=== PATIENT | female | born 1945 | race Two or more races ===

== ENCOUNTER 2024-07-26 00:32 | Emergency (ER) | payer MEDICARE, MEDICAID, SELFPAY ==
[2024-07-26 00:49] VITALS: BP 183/85; PULSE 88; RESP 18; TEMP 36.7; O2SAT 94; BMI 29.2
--- NOTE | 2024-07-26 01:29 | EDNOTE_ITS ---
<Statement entered by Mary Jane Sarabia MD - 07/26/24 18:32> As co-signing physician, I was present and available for consult prn. I concur with the plan and care as documented by the midlevel provider. ED Arrhythmia Palp. RME/HPI General Chief Complaint: Headache Stated Complaint: feels palpitations, headache Time Seen by Provider: 07/26/24 01:20 Arrival date/time: 07/26/24 00:32 78F with history of HTN presents to ED with buzzing in both ears, and heart palps after patient took some Sleepytime tea. Symptoms improved prior to arrival in ED. Patient took it to try and sleep due to close to anniversary of of . Patient denies dizziness, N/V, CP, SOB, confusion, and vision changes. Limitations: no limitations Related Data Allergies Allergy/AdvReac Type Severity Reaction Status Date / Time No Known Allergies Allergy Verified 07/26/24 00:35 Review of Systems Review of Systems Systems Reviewed: All systems reviewed, normal except as documented Constitutional Constitutional: Reports system reviewed and no additional complaints, except as documented, Denies fever(s) and Denies headache(s) ENT Ears, Nose, Mouth, and Throat: Reports as per HPI, Denies disequilibrium, Denies headache(s) and Reports other (buzzing in ears) Cardiovascular Cardiovascular: Reports system reviewed and no additional complaints, except as documented, Reports as per HPI, Denies chest pain, Denies dyspnea and Reports palpitations Respiratory Respiratory: Reports system reviewed and no additional complaints, except as documented, Denies cough and Denies dyspnea Gastrointestinal Gastrointestinal: Reports system reviewed and no additional complaints, except as documented, Denies abdominal pain, Denies nausea and Denies vomiting Neurologic Neurologic: Reports system reviewed and no additional complaints, except as documented, Denies confusion, Denies disequilibrium and Denies headache(s) Psychiatric Psychiatric: Denies confusion Endocrine Endocrine: Reports palpitations Past Medical History Social History SMOKING STATUS: Former smoker ED Exam General Limitations: Present no limitations General appearance: Present alert and in no apparent distress Head Head exam: Present atraumatic Eye Eye exam: Present normal appearance, PERRL and EOMI ENT ENT exam: Present normal exam, normal oropharynx and mucous membranes moist Neck Neck exam: Present normal inspection, full ROM and trachea midline Chest Chest inspection: Present normal inspection and symmetric chest wall rise Respiratory Respiratory exam: Present normal lung sounds bilaterally Cardiovascular Cardiovascular exam: Present regular rate, normal rhythm and normal heart sounds Abdominal Exam Abdominal exam: Present soft and normal bowel sounds Extremities Exam Extremities exam: Present normal inspection and full ROM Back Exam Back exam: Present normal inspection and full ROM Neurological Exam Neurological exam: Present alert, oriented X3 and CN II-XII intact Psychiatric Psychiatric exam: Present normal affect and normal mood Skin Skin exam: Present warm, dry, intact and normal color Course Quality Measures none Vital Signs Vital signs: Vital Signs Temperature 98.1 F 07/26/24 00:49 Pulse Rate 88 07/26/24 00:49 Respiratory Rate 18 07/26/24 00:49 Blood Pressure 183/85 H 07/26/24 00:49 Pulse Oximetry (%) 94 L 07/26/24 00:49 Oxygen Delivery Method Room Air 07/26/24 00:49 Arrhythmia/Palpitations MDM Narrative MDM Narrative:: 78F with history of HTN presents to ED with buzzing in both ears, and heart palps after patient took some Sleepytime tea. Symptoms improved prior to arrival in ED. Patient took it to try and sleep due to close to anniversary of of . Patient denies dizziness, N/V, CP, SOB, confusion, and vision changes. Physical exam reveals normal pupil response and EOM. CN II-XII grossly intact. Strength equal bilaterally. Gait normal. Speech normal. Normal WOB. ENT normal. Patient is afebrile, calm, and alert. Patient declines observation period as she will take her normal sleeping meds (some Benzo from [place]) rather than wait. Likely drug/med reaction. Waste Management Specialist given. Patient data External records reviewed:: None Clinical information provided by:: patient Social determinants that could affect healthcare access:: none Patient has the following chronic illnesses:: HTN How is presenting disease/condition affected by chronic disease/condition?: uneffected by Evaluation data The following diagnostics were reviewed and interpreted by me:: other (specify) (none) Lab and/or radiology exams considered but not ordered:: not ordered Interpretation Summary: n/a Medications / Prescriptions Medications or Prescriptions considered but not ordered:: not ordered Medication administrations:: n/a Consultations Consultation(s) initiated? (list below): No Diagnosis Differential diagnosis arrhythmia/palpitations: palpitations, anxiety, sinus tachycardia, artial fibrillation, artial flutter, ventricular premature beats, supraventricular tachycardia, ventricular tachycardia, WPW and other (drug adverse reaction) Most likely diagnosis given after review of the tests above:: drug adverse reaction Admission Indicated Admission indicated?: not indicated Admission Request Was there a request for admission?: No Disposition Plan Disposition Plan: Discharge Discharge Attestation Discharge Attestation: The patient and all family members were given an opportunity to ask questions and understood the discharge instructions. Discharge instructions specifically effects, indications for sooner follow up or return to the emergency department, and the expected course of current diagnosis. Patient condition: Stable Discharge Plan Plan Patient Disposition: HOME (Self Care) Discharge Disposition comment: Stable Problem List Clinical Impression: Adverse drug reaction Patient/Caregiver Discharge Instructions Education Materials: ED Drug Reaction, Other Additional Instructions: Please follow-up with PCP within 24-48 hours and return immediately if symptoms worsen. Print Language: Egyptian Stand Alone Forms: Patient Portal Info Letter NICOLAS/SAMIR Supervising Physician RUSLAN Supervising Physician: Dr. Sarabia
== END 2024-07-26 01:48 | disposition home or self-care (01) ==
PROVIDERS: Emergency Provider Emergency Medicine; PCP Physician Assistant
DX: T78.1XXA Other adverse food reactions, not elsewhere classified, initial encounter (principal); R51.9 Headache, unspecified; R00.2 Palpitations
CPT/HCPCS: 99281

== ENCOUNTER 2024-08-31 18:53 | Inpatient (IN) | payer MEDICARE, MEDICAID, SELFPAY ==
[2024-08-31 18:55] VITALS: BMI 27.8
--- NOTE | 2024-08-31 19:07 | PD.EDSOB ---
ED SOB =RME/HPI General Chief Complaint: Shortness of Breath/Dyspnea Stated Complaint: DYSPNEA, RIGHT LUNG OPAQUE IN CXR Time Seen by Provider: 08/31/24 19:34 Arrival date/time: 08/31/24 18:53 RME / HPI RME / HPI Narrative: This section includes all my notes and documentations, including HPI, PE, and ED course. Andrés Melgar MD HPI: 78yo female BIB her daughter with shortness of breath. Patient has been short of breath for the last 3 months, but has gotten progressively worse over the last 3 weeks. She also reports dry cough and orthopnea and PND. No other complaints. ROS: All negative except as documented in HPI. Physical Exam: General: Alert and oriented. In mild respiratory distress. Eyes: Conjunctivae and lids clear. ENT: No nasal congestion. Neck: Supple. Heart: RRR. Lungs: Mild respiratory distress. No air movement in the right field. Abdomen: Soft and nontender. Legs: No edema. Skin: Warm and dry. Neuro: Alert and oriented X 3. I reviewed all diagnostic test results. My interpretation of the EKG is sinus rhythm with nonspecific ST-T changes. My interpretation of the chest x-ray is large right pleural effusion. My review of the CT angio chest report is large right pleural effusion, no PE. My review of the CT abdomen pelvis report is NAD. Blood tests remarkable for Creatinine 1.7, Glucose 204, Troponin 0.052. At this point, diagnoses include right pleural effusion. Treatment here included Nitroglycerin, Morphine, and Lasix. No significant improvement noted. I discussed the case with our hospitalist. About the presentation and exam and diagnostics and treatments here. And need of further care in the hospital. Will accept the patient. Andrés Melgar MD Related Data Home Medications ?Medication ?Instructions ?Recorded ?Confirmed amlodipine 10 mg tablet 5 mg PO QDAY 09/01/24 09/01/24 atorvastatin 20 mg tablet 20 mg PO HS 09/01/24 09/01/24 bisoprolol fumarate 5 mg tablet 2.5 mg PO DAILY 09/01/24 09/01/24 levothyroxine 88 mcg tablet 88 mcg PO DAILY 09/01/24 09/01/24 telmisartan 80 2 tab PO DAILY 09/01/24 09/01/24 mg-hydrochlorothiazide 12.5 mg tablet Allergies Allergy/AdvReac Type Severity Reaction Status Date / Time No Known Allergies Allergy Verified 08/31/24 18:57 Review of Systems Review of Systems Systems Reviewed: All systems reviewed, normal except as documented Past Medical History Social History SMOKING STATUS: Never smoker ED Exam Narrative Physical exam: As noted in HPI. Course Course Course Narrative: CXR is ordered for determining the etiology of shortness of breath. Quality Measures none Orders Category Date Time Status Bedside COVID-19 Antigen Test NOW Care 08/31/24 19:10 Active Bedside Influenza A&B Antigen Test NOW Care 08/31/24 19:[address] Screening NOW Care 08/31/24 19:11 Active EKG (ED ONLY) *Do not use* NOW Care 08/31/24 19:11 Completed Saline [Insert IV] NOW Care 08/31/24 19:10 Active Straight [In and Out Catheter] X1 Care 08/31/24 19:[address] abdomen pelvis w con Stat Exams 08/31/24 19:[address] angio chest Stat Exams 08/31/24 19:11 Completed EKG (ED Only) Stat Exams 08/31/24 19:11 Draft XR chest 1V portable Stat Exams 08/31/24 19:11 Completed ABG [Arterial Blood Gas] Stat Lab 08/31/24 19:48 Completed BNP [B-Type Natriuretic Peptide] Stat Lab 08/31/24 19:48 Completed Bilirubin,Direct Stat Lab 08/31/24 19:48 Completed CBC Stat Lab 08/31/24 19:48 Completed CMP [Comprehensive Metabolic Panel] Stat Lab 08/31/24 19:48 Completed D-Dimer Stat Lab 08/31/24 19:48 Completed Free T4 (Free Thyroxine) Stat Lab 08/31/24 19:48 Completed Magnesium Stat Lab 08/31/24 19:48 Completed PT [Prothrombin Time with INR] Stat Lab 08/31/24 19:48 Completed PTT [Partial Thromboplastin Time] Stat Lab 08/31/24 19:48 Completed TSH [Thyroid Stimulating Hormone] Stat Lab 08/31/24 19:48 Completed Troponin I Stat Lab 08/31/24 19:48 Completed UA, C/S IF [Urinalysis, C/S if Indicated] Stat Lab 08/31/24 20:43 Completed Furosemide Inj [Lasix Inj] Med 08/31/24 19:10 Discontinued 40 mg IVP X1 ONE Morphine Inj Med 08/31/24 19:10 Discontinued 1 mg IVP X1 ONE Nitroglycerin Oint 2% [Nitro-paste Oint 2%] Med 08/31/24 19:10 Discontinued 1 inch TOP X1 ONE Vital Signs Vital signs: Vital Signs Temperature 98.6 F 08/31/24 19:08 Pulse Rate 79 08/31/24 19:08 Respiratory Rate 16 08/31/24 19:08 Blood Pressure 168/80 H 08/31/24 19:08 Pulse Oximetry (%) 92 L 08/31/24 19:08 Oxygen Delivery Method Room Air 08/31/24 19:08 Shortness of Breath / Dyspnea MDM Narrative MDM Narrative:: 78yo female BIB her daughter with shortness of breath. Patient has been short of breath for the last 3 months, but has gotten progressively worse over the last 3 weeks. She also reports dry cough and orthopnea and PND. No other complaints Patient data External records reviewed:: [facility] previous records (Per chart review, patient has no relevant previous ED visits.) Clinical information provided by:: patient and family Social determinants that could affect healthcare access:: none Patient has the following chronic illnesses:: HTN, HLD How is presenting disease/condition affected by chronic disease/condition?: uneffected by Evaluation data The following diagnostics were reviewed and interpreted by me:: lab results, radiology exam(s) and EKG tracing(s) (My interpretation of the EKG is: Sinus rhythm (75 bpm) with nonspecific ST-T changes. Andrés Melgar MD) Lab and/or radiology exams considered but not ordered:: none Interpretation Summary: I reviewed all diagnostic test results. My interpretation of the EKG is sinus rhythm with nonspecific ST-T changes. My interpretation of the chest x-ray is large right pleural effusion. My review of the CT angio chest report is large right pleural effusion, no PE. My review of the CT abdomen pelvis report is NAD. Blood tests remarkable for Creatinine 1.7, Glucose 204, Troponin 0.052. Medications / Prescriptions Medications or Prescriptions considered but not ordered:: none Medication administrations:: Medication Administration History Acetaminophen (Acetaminophen 325 Mg Tablet) 650 mg PO Q6H PRN PRN Reason: PAIN SCALE 1-3 (mild Stop: 09/30/24 22:12 Heparin Sodium (Porcine) (Heparin Sod Inj 5000 Unit/Ml Vial) 5,000 unit SC Q12HR VESTA Stop: 09/15/24 08:59 Levothyroxine Sodium (Levothyroxine Sodium 88 Mcg Tablet) 88 mcg PO ACBR VESTA Stop: 10/01/24 05:59 Ondansetron HCl (Ondansetron Inj 2 Mg/Ml Inj 2 Ml) 4 mg IVP Q6H PRN; Protocol PRN Reason: NAUSEA OR VOMITING Stop: 09/30/24 22:12 Sennosides (Senna Tablet) 1 tab PO QDAY PRN; Protocol PRN Reason: constipation Stop: 09/30/24 22:12 Discontinued Medications Furosemide (Furosemide Inj 10 Mg/Ml 4ml Vial) 40 mg IVP X1 ONE Stop: 08/31/24 19:11 Last Admin: 08/31/24 20:08 Dose: 40 mg Documented By: DT Morphine Sulfate (Morphine Sulf Inj 10 Mg/Ml Vial) 1 mg IVP X1 ONE Stop: 08/31/24 19:11 Last Admin: 08/31/24 20:06 Dose: 1 mg Documented By: DT Nitroglycerin (Nitroglycerin Oint 2% 1 Inch Packet) 1 inch TOP X1 ONE Stop: 08/31/24 19:11 Last Admin: 08/31/24 20:10 Dose: 1 inch Documented By: DT Nitroglycerin, Morphine, Lasix Consultations Consultation(s) initiated? (list below): Yes Consultation #1 (Physician, Specialty, Details): I discussed the case with our hospitalist. About the presentation and exam and diagnostics and treatments here. And need of further care in the hospital. Will accept the patient. Diagnosis Shortness of Breath Differential Diagnosis: acute exacerbation of chronic obstructive airways disease, congestive heart failure, community acquired pneumonia, asthma with exacerbation, pulmonary embolism and other (Pleural effusion) Most likely diagnosis given after review of the tests above:: Right pleural effusion Admission Indicated Admission indicated?: indicated Explain why admission is indicated or not indicated:: Right pleural effusion Admission Request Was there a request for admission?: Yes Admission Attestation Admission request attestation: Discussed case with Hospitalist service regarding admission. Discussed patients ED course, exam findings, labs, and radiology results. The Hospitalist [agrees] to accept the patient for admission. Disposition Plan Disposition Plan: Admit Discharge Plan Plan Patient Disposition: Admit Acute Care w/in Hospital Problem List Clinical Impression: Pleural effusion, right
[2024-08-31 19:08] VITALS: BP 168/80; PULSE 79; RESP 16; TEMP 37; O2SAT 92
--- NOTE | 2024-08-31 19:11 | XR_ITS ---
Examination: PA chest single view TECHNIQUE: Upright PA chest single view Date and time: August 31, 2024, 1925 hours INDICATIONS: Shortness of breath chest pain today. FINDINGS: Large right pleural effusion Normal heart size Left lung clear IMPRESSION: Large right pleural effusion
--- NOTE | 2024-08-31 19:11 | XR_ITS ---
Examination: CTA chest with intravenous contrast 2-D reconstructions 3-D reconstructions, vascular Date and time of exam: August 31, 2024 2114 hours INDICATIONS: Difficulty breathing today CTDI: vol (mGy) 25 DLP: (mGycm) 338 Technique: Multiple axial sections of the thorax have been obtained. 3 mm slice thickness, from below the hemidiaphragms to above the apices of the lungs. Mediastinal and lung density settings have been obtained. 2-D sagittal and coronal reconstructions. 3-D angiographic renderings, 3-D volume renderings, 3D post processing, vascular maximum intensity projections obtained. Contrast administered is 60 cc Isovue 300 Low dose protocols were performed. One or more of the following dose reduction techniques were used; automated exposure control, adjustment of the mA and/or KV according to patient size, use of iterative reconstruction technique. Findings: No thoracic aortic aneurysmal dilatation No pulmonary artery filling defects Large right pleural effusion with significant atelectasis right lung No left lung pneumonia Liver is irregular in contour Spleen is not enlarged No pancreatic mass Kidneys partially visualized no hydronephrosis IMPRESSION: Negative for pulmonary artery emboli Large right pleural effusion with total atelectasis right lung
--- NOTE | 2024-08-31 19:11 | EKG_ITS ---
[facility] Test Date: 2024-08-31 Pat Name: MAXI HOOKER Department: Room: - Gender: Female Sustainable Development Policy Analyst: : 1945 Requested By: Andrés Ibarra Order Number: [id number] Reading MD: Andrés Ibarra Measurements Intervals [place] Rate: 75 P: 13 KS: 153 QRS: 4 QRSD: 85 T: 6 QT: 392 QTc: 440 Interpretive Statements SINUS RHYTHM LOW QRS VOLTAGE IN PRECORDIAL LEADS [QRS DEFLECTION < 1.0 mV IN CHEST LEADS] POSSIBLE ANTERIOR MYOCARDIAL INFARCTION , OF INDETERMINATE AGE [30 ms Q WAVE IN V3/V4, OR R < 0.2 mV IN V4] No previous ECG available for comparison /[id number]/[email or web address]/[id number].pdf
--- NOTE | 2024-08-31 19:11 | XR_ITS ---
Examination: CT abdomen with intravenous contrast CT pelvis with intravenous contrast 2-D coronal reconstructions 2-D sagittal reconstructions Date and time of exam:August 31, 9024, 2113 hours INDICATIONS: Abdominal pain today. CTDI: vol (mGy) 7.46 DLP: (mGycm) 133 Technique: Multiple axial sections of the abdomen and pelvis have been obtained. 64 slice high-resolution scanner used. 3 mm axial sections have been obtained, post intravenous injection 60 cc Isovue 300 2-D sagittal, coronal reconstructions obtained. Low dose protocols were performed. One or more of the following dose reduction techniques were used; automated exposure control, adjustment of the mA and/or KV according to patient size, use of iterative reconstruction technique. Findings: Partial visualization of large right pleural effusion Liver mildly irregular in contour, no focal liver lesions Gallbladder not visualized No biliary tract dilatation No pancreatic mass Spleen is not enlarged. Abdominal aorta normal size 4 cm right parapelvic cyst No hydronephrosis or ureteral calculi No bowel obstruction Normal appendix Atrophic anteverted uterus No pelvic mass Urinary bladder intact Advanced degenerative disc disease L2-L3 Moderate bilateral hip osteoarthritis IMPRESSION: Partial visualization large right pleural effusion Primary hepatocellular disease No hydronephrosis renal or ureteral calculi Normal appendix No bowel obstruction or diverticulitis
[2024-08-31 19:53] LABS: Base Excess 7 (-3-3); HCO3 32 mEq/L (20-26); Inspired Oxygen, FIO2 21 %; O2 Saturation 93 % (91-98); PCO2 46 mmHg (32.0-48.0); PO2 63 mmHg (83-108); pH, Arterial 7.45 (7.35-7.45)
[2024-08-31 19:57] LABS: Allen Test Performed/OK; Puncture Site Right Radial
[2024-08-31 19:58] LABS: Basophils # (Auto) 0.1 Thou/mm3 (0.0-0.2); Basophils % (Auto) 2 % (0-2.5); Eosinophils # (Auto) 0.1 Thou/mm3 (0.0-0.5); Eosinophils % (Auto) 2 % (0-10); Hematocrit 44.0 % (36.0-46.0); Hemoglobin 15.8 g/dL (12.0-16.0); Immature Granulocytes Auto 0.01 Thou/mm3 (0.00-0.00); Lymphocytes # (Auto) 2.0 Thou/mm3 (1.0-4.8); Lymphocytes % (Auto) 33 % (10-50); Mean Corpuscular HGB Conc 35.9 g/dl (31.0-37.0); Mean Corpuscular Hemoglobin 30.4 pg (25.0-35.0); Mean Corpuscular Volume 85 fL (80-100); Monocytes # (Auto) 0.5 Thou/mm3 (0.0-0.8); Monocytes % (Auto) 8 % (0-12); Neutrophils # (Auto) 3.5 Thou/mm3 (1.8-7.7); Neutrophils % (Auto) 57 % (37-80); Nucleated Red Blood Cell # 0.00 Thou/mm3 (0.00-0.00); Nucleated Red Blood Cell % 0 /100 WBC (0); Platelet Count 236 Thou/mm3 (140-440); RDW Standard Deviation 37.3 fL (36.4-46.3); Red Blood Count 5.20 Miln/mm3 (4.00-5.20); White Blood Count 6.1 Thou/mm3 (3.6-11.0)
[2024-08-31] MEDS: MORPHINE SULF INJ 10 MG/ML VIAL IVP (20:06)
[2024-08-31 20:08] VITALS: BP 140/80; PULSE 75
[2024-08-31] MEDS: FUROSEMIDE INJ 10 MG/ML 4ML VIAL 40 MG IVP (20:08)
[2024-08-31 20:10] VITALS: BP 140/80; PULSE 78
[2024-08-31] MEDS: NITROGLYCERIN OINT 2% 1 INCH PACKET TOP (20:10)
[2024-08-31 20:16] LABS: D-Dimer < 250 ng/mL (<600)
[2024-08-31 20:20] VITALS: BP 131/74; PULSE 72; RESP 16; TEMP 37; O2SAT 95
[2024-08-31 20:41] LABS: B-Type Natriuretic Peptide 30 pg/mL (0-100); INR 1.0 (0.9-1.3); Partial Thromboplastin Time 24.8 Seconds (22.0-36.0); Prothrombin Time 11.0 Seconds (9.0-12.2)
[2024-08-31 20:47] LABS: Collection Type, Urine Clean Catch
[2024-08-31 20:47] LABS: Alanine Aminotransferase 9 U/L (10-49); Albumin, Serum 4.7 gm/dL (3.4-4.8); Albumin/Globulin Ratio 2.0 (1.2-2.2); Alkaline Phosphatase 43 U/L (46-116); Anion Gap 9 (7-16); Aspartate Amino Transferase < 10 U/L (0-34); BUN/Creatinine Ratio 8 Ratio (12-20); Bilirubin,Direct 0.2 mg/dL (0.0-0.3); Bilirubin,Total 0.7 mg/dL (0.3-1.2); Blood Urea Nitrogen 14 mg/dL (9-23); Calcium 10.0 mg/dL (8.3-10.6); Calcium (Corrected) 10.0 mg/dL (8.5-10.1); Carbon Dioxide 31.1 mMol/L (20.0-31.0); Chloride 101 mMol/L (98-107); Creatinine (Component) 1.7 mg/dL (0.6-1.3); Estimated Creatinine Clearance 24.6 mL/min (>60); Free T4 (Free Thyroxine) 2.04 ng/dL (0.89-1.76); Globulin 2.4 gm/dL (2.3-3.5); Glucose 204 mg/dL (74-106); Magnesium 2.2 mg/dL (1.6-2.6); Osmolality,Calculated 287 (275-295); Potassium 3.4 mMol/L (3.4-5.1); Sodium 141 mMol/L (136-145); Thyroid Stimulating Hormone 0.20 uIU/mL (0.55-4.78); Total Protein 7.1 gm/dL (5.7-8.2); eGFR 31 See Note
[2024-08-31 20:49] LABS: Troponin I 0.052 ng/mL (0.0-0.045)
[2024-08-31 20:51] LABS: Bilirubin,Urine Negative (Negative); Blood,Urine Negative (Negative); Clarity,Urine Clear (Clear/Hazy); Color,Urine Colorless (Lt Yel-Yel); Culture Indicated,Urine Not Indicated; Glucose, Urine Negative (Negative); Hyaline Casts,Urine < 1 /hpf (0-1); Ketones,Urine Negative (Negative); Leukocyte Esterase,Urine Negative (Negative); Nitrite,Urine Negative (Negative); PH,Urine 6.0 (5.0-7.0); Protein,Urine Negative (Neg - Trace); RBC,Urine < 1 /hpf (0-3); Specific Gravity,Urine 1.010 (1.001-1.035); Squamous Epithelial Cell,Urine < 1 /hpf (0-5); Urobilinogen,Urine Negative mg/dL (0.0-1.0); WBC,Urine < 1 /hpf (0-5)
[2024-08-31 21:14] VITALS: BP 121/77; PULSE 85; RESP 14; TEMP 37; O2SAT 93
--- NOTE | 2024-08-31 22:15 | ECHO_ITS ---
Transthoracic Echo Report Ht (in): 61 Wt (lb): 147 Exam Location: Echo Lab Status: Emergency Customs Broker: Vicky Campbell Indications: Procedure Performed: BP: 155 / 76 HR: 85 Technical Quality: Poor MEASUREMENTS (Male / Female) Normal Values 2D ECHO LV Diastolic Diameter PLAX 3.3 cm 4.2 - 5.9 / 3.9 - 5.3 cm LV Systolic Diameter PLAX 2.2 cm IVS Diastolic Thickness 0.9 cm 0.6 - 1.0 / 0.6 - 0.9 cm LVPW Diastolic Thickness 0.9 cm 0.6 - 1.0 / 0.6 - 0.9 cm LV Relative Wall Thickness 0.5 LVOT Diameter 1.7 cm Aortic Root Diameter 3.0 cm LA Volume Index 17.0 cm?/m? 16 - 28 cm?/m? M-MODE Aortic Root Diameter MM 2.5 cm LA Systolic Diameter MM 2.8 cm LA Ao Ratio MM 1.1 AV Cusp Separation MM 1.6 cm DOPPLER AV Peak Velocity 207.0 cm/s AV Peak Gradient 17.1 mmHg AV Mean Gradient 8.0 mmHg AV Velocity Time Integral 34.0 cm LVOT Peak Velocity 136.0 cm/s LVOT Peak Gradient 7.4 mmHg LVOT Velocity Time Integral 29.6 cm LVOT Cardiac Index 3331.3 cm?/min?m? AV Area Cont Eq vti 2.0 cm? AV Area Cont Eq pk 1.5 cm? MV Area PHT 3.4 cm? Mitral E Point Velocity 51.4 cm/s Mitral A Point Velocity 95.1 cm/s Mitral E to A Ratio 0.5 LV E' Lateral Velocity 10.3 cm/s Mitral E to LV E' Lateral Ratio 5.0 LV E' Septal Velocity 7.7 cm/s Mitral E to LV E' Septal Ratio 6.7 TR Peak Velocity 277.5 cm/s TR Peak Gradient 30.8 mmHg PV Peak Velocity 147.0 cm/s PV Peak Gradient 8.6 mmHg FINDINGS Left Ventricle Normal left ventricular size, wall thickness, systolic function with no obvious regional wall motion abnormalities. The ejection fraction is visually estimated at 55-60 %. There is grade I diastolic dysfunction of the left ventricle (impaired relaxation pattern). Right Ventricle The right ventricle is normal in size and systolic function. The estimated right ventricular systolic pressure, 37 mmHg. RAP 5. Left Atrium The left atrium is normal by two-dimensional, color flow and Doppler imaging with no structural abnormalities, no thrombus formation present. Right Atrium The right atrium is normal by two-dimensional imaging, color flow and Doppler imaging with no structural abnormalities, no thrombus formation present. Atrial Septum The interatrial septum appears normal with no evidence of a shunt. Aorta The aorta is normal by two-dimensional, color flow and Doppler interrogation. Mitral Valve The mitral valve is normal by two-dimensional, color flow and Doppler interrogation. Trace mitral regurgitation. Aortic Valve The aortic valve is trileaflet and normal by two-dimensional, color flow and Doppler interrogation. There is no significant aortic valve regurgitation. Tricuspid Valve The tricuspid valve is normal by two-dimensional, color flow and Doppler interrogation. There is mild tricuspid valve regurgitation. Pulmonic Valve The pulmonic valve is not well visualized. There is no significant pulmonic valve regurgitation. Vessels The pulmonary artery appears normal. The inferior vena cava pulmonary and hepatic veins appear normal. Pericardium The pericardium is normal by two-dimensional imaging. There is no significant pericardial effusion. CONCLUSIONS Indication: Orthopnea, LE edema, Effusion Normal left ventricular size and function. Estimated at 55-60 %. There is grade I diastolic dysfunction. The RV is normal in size and systolic function. The estimated RVSP, 37 mmH Trace mitral and trace tricuspid regurgitation Marina Das (Electronically Signed) Final Date: 02 September 2024 18:34
--- NOTE | 2024-08-31 23:48 | PC.NURSE ---
Telephone report recieved from Mandi from ER.
[2024-09-01] VITALS (14 sets, daily range): BP systolic 107–155; BP diastolic 58–76; PULSE 64–96; RESP 14–26; TEMP 36.1–36.6; O2SAT 90–97; BMI 27.8
--- NOTE | 2024-09-01 | XR_ITS ---
Examination: IR fluoroscopically guided placement chest tube, right Fluoroscopy AP chest Date and time: September 01, 2024 1222 hours INDICATIONS: Pneumothorax post right thoracentesis today TECHNIQUE AND FINDINGS: Informed consent provided. Timeout performed. Skin prepped over the right hemithorax and sterile drape applied hand hygiene 1% lidocaine administered for local anesthesia Utilizing fluoroscopic guidance 9 [place] 25 cm chest tube placed in the right hemithorax Fluoroscopy 0.3 minute radiation dose 2.06 milligray 1 spot fluoroscopic chest film IMPRESSION: Successful IR fluoroscopically guided placement right chest tube Estimated blood loss 2 cc
--- NOTE | 2024-09-01 01:15 | PD.RESHP ---
Documentation for date of: 09/01/24 [facility] History of Present Illness History of present illness: Radha Nance is a 78-year-old female with a PMH of hypertension, prediabetes, hypothyroidism, hyperlipidemia, and osteoarthritis who presents today with worsening shortness of breath. Patient is [place]-speaking and her daughter, who was present at the time of interview, acted as the jewelry drilling machine operator. Patient reports that her shortness of breath began 3 months ago but had acutely worsened in the past 3 weeks. She says that now she is having shortness of breath just from doing simple things like lifting a baby and that she needs to rest more often so that she can catch her breath. She also endorses that she has had to sleep with her head elevated or with her sitting upright so that she can breathe better. She also complains of night sweats, palpitations, and abdominal pain. She denies any recent travel or sick contacts. In the ED, vitals showed: BP 168/80 HR 79 RR 16 Temp 98.6 SpO2 92% on room air ED Course: CBC was unremarkable. ABG showed low PO2 63, low HCO3 32, and high ABG base excess 7. CMP showed slightly high carbon dioxide 31.1, high creatinine 1.7, low EGFR 31, high blood glucose 204, high troponin I 0.052, low TSH 0.20, and high free T4 2.04. UA was unremarkable. Imaging: CTAP showed partial visualization of a large right pleural effusion and primary hepatocellular disease. Chest CTA showed large right pleural effusion with total atelectasis of the right lung but was negative for pulmonary artery emboli. Chest x-ray showed large right pleural effusion. EKG showed sinus rhythm with possible old anterior myocardial infarction of indeterminate age. In the ED, patient was given IV morphine sulfate 1 mg x 1, IV furosemide 40 mg x 1, and 1 inch of nitroglycerin paste x 1. Patient was admitted for the work-up and management of right pleural effusion w/ associated shortness of breath and IRA vs. CKD. Review of Systems Review of Systems Narrative Review of Systems: General: Endorses night sweats. Denies fevers or chills HEENT: Denies congestion or sore throat Heart: Endorses palpitations. Endorses orthopnea. Denies chest pain Lungs: Endorses shortness of breath. Denies cough Abdomen: Endorses abdominal pain. Denies nausea, vomiting, constipation, diarrhea, or blood in stool Genitourinary: Denies frequency, urgency, dysuria, or hematuria Neurology: Denies any changes in vision, weakness or difficulty speaking Review of systems otherwise negative except what is mentioned above. Past Medical History Past Medical History CARDIAC: Positive Cardiac Disorders (htn); Negative Congestive Heart Failure RESPIRATORY: Positive Asthma; Negative Chronic Obstructive Pulmonary Disease (COPD) GENITOURINARY: Negative Renal Disease ENDOCRINE: Negative Diabetes Mellitus Type 1 or Diabetes Mellitus Type 2 HEMATOLOGIC: Negative Sickle Cell Disease Social History SMOKING STATUS: Never smoker Past Medical History Comments PMH COMMENT: PMH: Hypertension, prediabetes, hypothyroidism, hyperlipidemia, osteoarthritis PSH: Hemorrhoidectomy, cholecystectomy Medications: Telmisartan 80 mg daily, bromazepam 3 mg nightly, levothyroxine 88 mcg every morning, amlodipine 5 mg every morning, bisoprolol 2.5 mg daily Allergies: None FH: Dad of [place], mom of stroke SH: Lives in [place] in a house with son, smoked a cigarette a day for 20 years, no drinking history, no recreational drug use Exam Vital Signs Temp Pulse Resp BP Pulse Ox O2 Del Method 97.1 F 64 18 128/61 92 L Room Air 09/01/24 00:50 09/01/24 00:50 09/01/24 00:50 09/01/24 00:50 09/01/24 00:50 09/01/24 00:50 Narrative Exam Physical Exam: General: Alert, no acute distress. Skin: Warm, dry, intact, no obvious rash. Head: Normocephalic, atraumatic. Eye: Normal conjunctiva, PERRL. Throat: Oral mucosa moist. No obvious lesions in oropharynx. Cardiovascular: Regular rate and rhythm, no murmur, +S1/S2. Respiratory: Decreased breath sounds on right posterior lung stout. Dullness to percussion of right posterior lung stout. No wheezing. Gastrointestinal: Soft, nontender, non-distended. No guarding or rebound tenderness. Extremities: No edema, no cyanosis, no clubbing. 2+ radial pulse bilaterally, 2+ posterior tibial pulse bilaterally. Neuro: No focal deficits observed. Conversant, moving all extremities. No overt cerebellar signs/incoordination. Psychiatric: Cooperative, appropriate affect. Results: Labs 09/01/24 02:27 09/01/24 02:27 Labs: Short CBC 08/31/24 Range/Units 19:48 WBC 6.1 (3.6-11.0) Thou/mm3 Hgb 15.8 (12.0-16.0) g/dL Hct 44.0 (36.0-46.0) % Plt Count 236 (140-440) Thou/mm3 BMP 08/31/24 19:48 Sodium 141 Potassium 3.4 Chloride 101 Carbon Dioxide 31.1 H BUN 14 Creatinine 1.7 H Glucose 204 H Calcium 10.0 Cardiac Enzymes 08/31/24 Range/Units 19:48 Troponin I 0.052 H* (0.0-0.045) ng/mL Liver Function 08/31/24 Range/Units 19:48 Total Bilirubin 0.7 (0.3-1.2) mg/dL Direct Bilirubin 0.2 (0.0-0.3) mg/dL AST < 10 (0-34) U/L ALT 9 L (10-49) U/L Alkaline Phosphatase 43 L (46-116) U/L Albumin 4.7 (3.4-4.8) gm/dL Urine 08/31/24 Range/Units 20:43 Urine Color Colorless A (Lt Yel-Yel) Urine Clarity Clear (Clear/Hazy) Urine pH 6.0 (5.0-7.0) Ur Specific [place] 1.010 (1.001-1.035) Urine Protein Negative (Neg - Trace) Urine Glucose (UA) Negative (Negative) ABG Interpretation ABG results: 08/31/24 19:48 ABG pH 7.45 ABG pCO2 46 ABG pO2 63 L ABG HCO3 32 H ABG O2 Saturation 93 ABG Base Excess 7 H Quality Measures Quality Measures none Advance care planning discussed with:: patient and child (daughter) Medications Home Medications and Allergies Home Medications ?Medication ?Instructions ?Recorded ?Confirmed ?Type amlodipine 10 mg tablet 5 mg PO QDAY 09/01/24 09/01/24 History atorvastatin 20 mg tablet 20 mg PO HS 09/01/24 09/01/24 History bisoprolol fumarate 5 mg tablet 2.5 mg PO DAILY 09/01/24 09/01/24 History levothyroxine 88 mcg tablet 88 mcg PO DAILY 09/01/24 09/01/24 History telmisartan 80 2 tab PO DAILY 09/01/24 09/01/24 History mg-hydrochlorothiazide 12.5 mg tablet Allergies Allergy/AdvReac Type Severity Reaction Status Date / Time No Known Allergies Allergy Verified 08/31/24 18:57 Visit Medications Acetaminophen (Acetaminophen 325 Mg Tablet) 650 mg PO Q6H PRN PRN Reason: PAIN SCALE 1-3 (mild Stop: 09/30/24 22:12 Heparin Sodium (Porcine) (Heparin Sod Inj 5000 Unit/Ml Vial) 5,000 unit SC Q12HR VESTA Stop: 09/15/24 08:59 Levothyroxine Sodium (Levothyroxine Sodium 88 Mcg Tablet) 88 mcg PO ACBR VESTA Stop: 10/01/24 05:59 Ondansetron HCl (Ondansetron Inj 2 Mg/Ml Inj 2 Ml) 4 mg IVP Q6H PRN; Protocol PRN Reason: NAUSEA OR VOMITING Stop: 09/30/24 22:12 Sennosides (Senna Tablet) 1 tab PO QDAY PRN; Protocol PRN Reason: constipation Stop: 09/30/24 22:12 Discontinued Medications Furosemide (Furosemide Inj 10 Mg/Ml 4ml Vial) 40 mg IVP X1 ONE Stop: 08/31/24 19:11 Last Admin: 08/31/24 20:08 Dose: 40 mg Morphine Sulfate (Morphine Sulf Inj 10 Mg/Ml Vial) 1 mg IVP X1 ONE Stop: 08/31/24 19:11 Last Admin: 08/31/24 20:06 Dose: 1 mg Nitroglycerin (Nitroglycerin Oint 2% 1 Inch Packet) 1 inch TOP X1 ONE Stop: 08/31/24 19:11 Last Admin: 08/31/24 20:10 Dose: 1 inch Assessment & Plan Assessment Radha Nance is a 78-year-old female with a PMH of hypertension, prediabetes, hypothyroidism, hyperlipidemia, and osteoarthritis who presents today with worsening shortness of breath. Patient was admitted for the work-up and management of right pleural effusion w/ associated shortness of breath and IRA vs. CKD. #Right pleural effusion #likely 2/2 atelectasis of right lung #Shortness of breath Large right pleural effusion seen on CTAP, chest CTA, and CXR. Total atelectasis of the right lung seen on chest CTA. Chest CTA was negative for pulmonary artery emboli Absence of breath sounds over the right posterior lung field Work-up Progress: currently unknown whether pleural fluid is exudative or transudative, ordered pleural fluid studies to determine type Differential Dx: 1. Transudative: atelectasis, heart failure, hypoalbuminemia, nephrotic syndrome, urinothorax 2. Exudative: malignancy, COVID-19, superior vena caval obstruction, hypothyroid pleural effusion, constrictive pericarditis, sarcoidosis, pulmonary embolism Plan: -Ordered ultrasound-guided thoracentesis for drainage of right pleural effusion -Ordered echocardiogram -Ordered pleural fluid studies for total protein, LDH, glucose, cell count and differential, and amylase -Ordered body fluid culture w/ analysis and Gram stain -Ordered serological tests for Cocci -Placed patient on strict I's & O's, daily weight, aspiration precautions, head of bed elevation, and continuous pulse oximetry #IRA vs. CKD IIIb Patient's baseline creatinine and renal function are unknown. Upon admission, her creatinine was elevated at 1.7 and her eGFR was low at 31. Plan: -Monitor creatinine, BUN, and eGFR for assessment of kidney function #Chronic medical problems #Hypothyroidism #Prediabetes #Hyperlipidemia Patient's home medication include PO levothyroxine 88 mcg ACBR but her TSH was low at 0.20 and her free T4 was high at 2.04 (suggesting her current dose may actually be too much and pushing her into hyperthyroidism) Initial blood glucose was 204 Plan: -Started patient on PO levothyroxine 50 mcg ACBR (will hold her home medication of PO levothyroxine 88 mg ACBR) -Ordered hemoglobin A1c to assess for blood glucose control -Lipid panel came back with no significant findings Hospital Management: Disposition: pending thoracentesis for right pleural effusion Diet: Cardiac GI Prophylaxis: None Bowel Prophylaxis: Senna DVT Prophylaxis: Heparin CODE STATUS: Full Code I have examined the patient and conferred with my attending, Dr. Marion, and my senior resident, Dr. Grove, regarding them. Temo Broderick, DO PGY-1 Internal Medicine Plan I reviewed labs, imaging, EKG, home medications and prior available records. Face to face evaluation was performed by me. I have personally examined the patient and discussed assessment and plan with the IM team. I reviewed the resident note and agree with the plan with exceptions as below. Shortness of breath Large right-sided pleural effusion IRA Hypothyroidism Essential hypertension Diabetes mellitus, type II Ordered pleurocentesis Send pleural fluid to analysis including LDH, protein, and Gram stain/culture A1c is 7.5. Monitor glucose level Continue IV fluids. Monitor kidney function. Avoid nephrotoxins. Renally dosed medications Ordered echocardiogram
[2024-09-01 02:51] LABS: Basophils # (Auto) 0.1 Thou/mm3 (0.0-0.2); Basophils % (Auto) 1 % (0-2.5); Eosinophils # (Auto) 0.1 Thou/mm3 (0.0-0.5); Eosinophils % (Auto) 1 % (0-10); Hematocrit 42.2 % (36.0-46.0); Hemoglobin 15.2 g/dL (12.0-16.0); Immature Granulocytes Auto 0.01 Thou/mm3 (0.00-0.00); Lymphocytes # (Auto) 2.1 Thou/mm3 (1.0-4.8); Lymphocytes % (Auto) 31 % (10-50); Mean Corpuscular HGB Conc 36.0 g/dl (31.0-37.0); Mean Corpuscular Hemoglobin 30.6 pg (25.0-35.0); Mean Corpuscular Volume 85 fL (80-100); Monocytes # (Auto) 0.5 Thou/mm3 (0.0-0.8); Monocytes % (Auto) 7 % (0-12); Neutrophils # (Auto) 4.2 Thou/mm3 (1.8-7.7); Neutrophils % (Auto) 60 % (37-80); Nucleated Red Blood Cell # 0.00 Thou/mm3 (0.00-0.00); Nucleated Red Blood Cell % 0 /100 WBC (0); Platelet Count 232 Thou/mm3 (140-440); RDW Standard Deviation 37.2 fL (36.4-46.3); Red Blood Count 4.97 Miln/mm3 (4.00-5.20); White Blood Count 7.0 Thou/mm3 (3.6-11.0)
[2024-09-01 03:41] LABS: Alanine Aminotransferase 13 U/L (10-49); Albumin, Serum 4.4 gm/dL (3.4-4.8); Albumin/Globulin Ratio 1.6 (1.2-2.2); Alkaline Phosphatase 41 U/L (46-116); Anion Gap 11 (7-16); Aspartate Amino Transferase 18 U/L (0-34); BUN/Creatinine Ratio 10 Ratio (12-20); Bilirubin,Total 0.7 mg/dL (0.3-1.2); Blood Urea Nitrogen 13 mg/dL (9-23); Calcium 9.0 mg/dL (8.3-10.6); Calcium (Corrected) 9.0 mg/dL (8.5-10.1); Carbon Dioxide 33.2 mMol/L (20.0-31.0); Cardiac Risk Estimate 3.8 RATIO (3.7-5.6); Chloride 100 mMol/L (98-107); Cholesterol 187 mg/dL (132-200); Creatinine (Component) 1.3 mg/dL (0.6-1.3); Estimated Creatinine Clearance 32.2 mL/min (>60); Globulin 2.8 gm/dL (2.3-3.5); Glucose 118 mg/dL (74-106); HDL Cholesterol 49 mg/dL (40-60); LDL Cholesterol,Calculated 111 mg/dL (0-130); Osmolality,Calculated 287 (275-295); Potassium 3.0 mMol/L (3.4-5.1); Sodium 144 mMol/L (136-145); Total Protein 7.2 gm/dL (5.7-8.2); Triglycerides 134 mg/dL (30-150); eGFR 43 See Note
[2024-09-01 03:42] LABS: Troponin I 0.046 ng/mL (0.0-0.045)
[2024-09-01 04:58] LABS: Glucose Estimated Average 169 mg/dL (80-131); Hemoglobin A1C 7.5 % Hgb (4.8-6.0)
[2024-09-01] MEDS: LEVOTHYROXINE SODIUM 25 MCG TABLET 50 MCG PO (05:11)
--- NOTE | 2024-09-01 08:00 | XR_ITS ---
Examination: Ultrasound-guided right thoracentesis Ultrasound right hemithorax Ultrasound left hemithorax Date and time: September 01, 2024 1134 hours INDICATIONS: Difficulty breathing this week, very large right pleural effusion on chest x-ray August 31, 2024 TECHNIQUE AND FINDINGS: Informed consent provided. Timeout performed. High-resolution grayscale images right and left hemithoraces, large right pleural effusion Skin prepped over the right chest and sterile drape applied hand hygiene ultrasound sterile technique 1% lidocaine administered for local anesthesia Utilizing fluoroscopic guidance 5 Algerian catheter placed in the right pleural space 2500 cc pleural fluid removed Estimated blood loss 0 cc IMPRESSION: Ultrasound-guided right thoracentesis, 2500 cc pleural fluid removed
[2024-09-01] MEDS: RINGERS LACTATED 1000 ML 1,000 ML 50 ML IV (09:07)
[2024-09-01 09:29] LABS: LDH (Lactate Dehydrogenase) 232 U/L (120-246)
[2024-09-01] MEDS: POTASSIUM CHLORIDE 10% 20 MEQ/15 ML UDC 40 MEQ PO (09:59)
--- NOTE | 2024-09-01 10:07 | PC.SS ---
Follow up note: CHF exacerbation.
--- NOTE | 2024-09-01 11:00 | PC.NURSE ---
pt was taken down to ultrasound for thoracentesis.
--- NOTE | 2024-09-01 11:49 | XR_ITS ---
Examination: PA chest single view TECHNIQUE: Upright PA chest single view Date and time: September 01, 2024 1207 hours Comparison August 31, 2024 INDICATIONS: Post right thoracentesis today. FINDINGS: Large right pneumothorax with fluid level in the right hemithorax Left lung clear Normal heart size IMPRESSION: Large right pneumothorax post thoracentesis
[2024-09-01 12:31] LABS: Cocci Serology, IgM Negative (Negative)
[2024-09-01 12:34] LABS: Pleural Fluid WBC 33 /cmm
[2024-09-01] MEDS: fentaNYL CIT INJ 50 mCg/ML AMP 2ML IVP (12:51)
[2024-09-01 12:54] LABS: Amylase,Pleural Fluid 52 IU/L; Glucose,Pleural Fluid 155 mg/dL; LDH,Pleural Fluid 96 IU/L; Protein Total,Pleural Fluid 5.0 g/dL
[2024-09-01 13:02] LABS: Pleural Fluid Appearance Clear; Pleural Fluid Color Yellow; Pleural Fluid Mononuclear 88 %; Pleural Fluid Polynuclear 12 %; Pleural Fluid RBC 14 /cmm
--- NOTE | 2024-09-01 13:21 | ESPR_ITS ---
<Statement entered by Nirmal Bo MD - 09/12/24 07:44> I reviewed above note and agree with findings and plans. I have also personally examined the patient with medicine team and went over assessment and plan with medical team including buyer internship and resident physician. Documentation for date of: 09/01/24 Patient examined at bedside. Patient on 2 liter NC saturating between 91-96%. Patient is pending chest tube placement. given pleural effusion, cytology, and pleural studies ordered. A1c elevated at 7.5, previously pre-diabetic, patient would benefit from insulin inpatient and outpatient start metformin. Subjective Subjective Interval history: Patient seen and examined at bedside this AM. Reports some overall chest pressure, improved with supplemental oxygen. Patient was informed that she has a large right pleural effusion recommended thoracentesis, agreeable to procedure. Also complains of some calf cramping, potassium was low at 3.0, repleted. Patient also endorses abdominal pain after eating, denies history of GERD but will start Protonix. Blood pressure was 113/68, held hypertensives this morning. BUN and creatinine within normal limits. A1c 7.5, will start patient on insulin regimen. TSH low, T4 high, patient has history of hypothyroidism and is taking levothyroxine at home. Likely overdosed, will decrease levothyroxine to 50 mg. Patient reports that she followed a quote clerk in [place]. Would like referral to a quote clerk here. Patient sustained post procedural pneumothorax, follow up CXR shows improvement, ordered CXR for 7AM tomorrow morning to follow up. Right chest tube placed, on suction and draining. Review of systems otherwise negative except what is mentioned above. Exam Vital Signs Temp Pulse Resp BP Pulse Ox O2 Del Method O2 Flow Rate 97.8 F 85 18 155/76 H 90 L Room Air 3 09/01/24 13:16 09/01/24 13:16 09/01/24 13:16 09/01/24 13:09/01/24 13:09/01/24 13:09/01/24 12:50 Narrative Exam Physical Exam General: Awake and in no acute distress. Conversational and non-toxic appearing. HEENT: Normocephalic, atraumatic, mucous membranes moist. Heart: Regular rate and rhythm, normal S1 and S2, no murmurs. Lungs: Decreased breath sounds in right lower lobe. Clear to auscultation all other lobes. Abdomen: Soft, nondistended, nontender, positive bowel sounds. No guarding or rebound tenderness. Neurologic: Alert and oriented x3, no gross neurological deficit, and patient able to move all 4 extremities. Extremities: No edema. Skin: No rash or ecchymoses. Objective Labs 09/04/24 04:28 09/04/24 04:28 Labs: Laboratory Results - last 24 hr 08/31/24 08/31/24 09/01/24 19:48 20:43 02:27 WBC 6.1 7.0 RBC 5.20 4.97 Hgb 15.8 15.2 Hct 44.0 42.2 MCV 85 85 MCH 30.4 30.6 MCHC 35.9 36.0 RDW Std Deviation 37.3 37.2 Plt Count 236 232 Neut % (Auto) 57 60 Lymph % (Auto) 33 31 [place] % (Auto) 8 7 Eos % (Auto) 2 1 Baso % (Auto) 2 1 Neut # (Auto) 3.5 4.2 Lymph # (Auto) 2.0 2.1 [place] # (Auto) 0.5 0.5 Eos # (Auto) 0.1 0.1 Baso # (Auto) 0.1 0.1 Immature Gran # (Auto) 0.01 H 0.01 H Absolute Nucleated RBC 0.00 0.00 Immature Gran % 0 0 Nucleated RBC % 0 0 PT 11.0 INR 1.0 APTT 24.8 D-Dimer < 250 Puncture Site Right Radial ABG pH 7.45 ABG pCO2 46 ABG pO2 63 L ABG HCO3 32 H ABG O2 Saturation 93 ABG Base Excess 7 H FiO2 21 Sodium 141 144 Potassium 3.4 3.0 L Chloride 101 100 Carbon Dioxide 31.1 H 33.2 H Anion Gap 9 11 BUN 14 13 Creatinine 1.7 H 1.3 Estim Creat Clear Calc 24.6 L 32.2 L eGFR 31 L 43 L BUN/Creatinine Ratio 8 L 10 L Glucose [address] Glu mg/dL Hemoglobin A1c Calculated Osmolality 287 287 Calcium 10.0 9.0 Corrected Calcium 10.0 9.0 Magnesium 2.2 Total Bilirubin 0.7 0.7 Direct Bilirubin 0.2 AST < 10 18 ALT 9 L 13 Alkaline Phosphatase 43 L 41 L Lactate Dehydrogenase Troponin I 0.052 H* 0.046 H* B-Natriuretic Peptide 30 Total Protein 7.1 7.2 Albumin 4.7 4.4 Globulin 2.4 2.8 Albumin/Globulin Ratio 2.0 1.6 Triglycerides 134 Cholesterol 187 LDL Cholesterol, Calc 111 HDL Cholesterol 49 Cholesterol/HDL Ratio 3.8 TSH 0.20 L Free T4 2.04 H Ur Collection Type Clean Catch Urine Color Colorless A Urine Clarity Clear Urine pH 6.0 Ur Specific [place] 1.010 Urine Protein Negative Urine Glucose (UA) Negative Urine Ketones Negative Urine Blood Negative Urine Nitrite Negative Urine Bilirubin Negative Urine Urobilinogen (Auto) Negative Ur Leukocyte Esterase Negative Urine RBC < 1 Urine WBC < 1 Ur Squamous Epith Cells < 1 Urine Bacteria None Hyaline Casts < 1 Ur Culture Indicated? Not Indicated Pleural Color Pleural Appearance Pleural WBC Pleural RBC Pleural Polynuclear WBC Pleural Mononuclear WBC Pleural Total Protein Pleural LDH Pleural Glucose Pleural Amylase Coccidioides IgM Ab Negative 09/01/24 09/01/24 03:00 11:41 WBC RBC Hgb Hct MCV MCH MCHC RDW Std Deviation Plt Count Neut % (Auto) Lymph % (Auto) [place] % (Auto) Eos % (Auto) Baso % (Auto) Neut # (Auto) Lymph # (Auto) [place] # (Auto) Eos # (Auto) Baso # (Auto) Immature Gran # (Auto) Absolute Nucleated RBC Immature Gran % Nucleated RBC % PT INR APTT D-Dimer Puncture Site ABG pH ABG pCO2 ABG pO2 ABG HCO3 ABG O2 Saturation ABG Base Excess FiO2 Sodium Potassium Chloride Carbon Dioxide Anion Gap BUN Creatinine Estim Creat Clear Calc eGFR BUN/Creatinine Ratio Glucose Estimated Ave Glu mg/dL 169 H Hemoglobin A1c 7.5 H Calculated Osmolality Calcium Corrected Calcium Magnesium Total Bilirubin Direct Bilirubin AST ALT Alkaline Phosphatase Lactate Dehydrogenase 232 Troponin I B-Natriuretic Peptide Total Protein Albumin Globulin Albumin/Globulin Ratio Triglycerides Cholesterol LDL Cholesterol, Calc HDL Cholesterol Cholesterol/HDL Ratio TSH Free T4 Ur Collection Type Urine Color Urine Clarity Urine pH Ur Specific [place] Urine Protein Urine Glucose (UA) Urine Ketones Urine Blood Urine Nitrite Urine Bilirubin Urine Urobilinogen (Auto) Ur Leukocyte Esterase Urine RBC Urine WBC Ur Squamous Epith Cells Urine Bacteria Hyaline Casts Ur Culture Indicated? Pleural Color Yellow Pleural Appearance Clear Pleural WBC 33 Pleural RBC 14 Pleural Polynuclear WBC 12 Pleural Mononuclear WBC 88 Pleural Total Protein 5.0 Pleural LDH 96 Pleural Glucose 155 Pleural Amylase 52 Coccidioides IgM Ab ABG Interpretation ABG results: 08/31/24 19:48 ABG pH 7.45 ABG pCO2 46 ABG pO2 63 L ABG HCO3 32 H ABG O2 Saturation 93 ABG Base Excess 7 H Quality Measures Quality Measures none Advance care planning discussed with:: patient Assessment & Plan Assessment Current Active Medications: Generic Name Dose Route Start Last Admin Trade Name Meka PRN Reason Stop Dose Admin Acetaminophen 650 mg 08/31/24 22:13 Acetaminophen 325 Mg Tablet PO 09/30/24 22:12 Q6H PRN PAIN SCALE 1-3 (mild Amlodipine Besylate 5 mg 09/02/24 09:00 Amlodipine Besylate 5 Mg Tablet PO 10/02/24 08:59 QDAY VESTA Atorvastatin Calcium 20 mg 09/01/24 21:00 Atorvastatin Calcium 20 Mg Tablet PO 10/01/24 20:59 HS VESTA Dextrose 25 ml 09/01/24 09:11 Dextrose 50%-Water Inj 50 Ml Syringe IV 10/01/24 09:10 Q15MIN PRN BG 50-70 responsive npo pt Dextrose 50 ml 09/01/24 09:11 Dextrose 50%-Water Inj 50 Ml Syringe IV 10/01/24 09:10 Q15MIN PRN BG <50 OR BG <70 & pt unresponsive Glucagon 1 mg 09/01/24 09:11 Glucagon Inj 1 Mg Vial IM Q15MIN PRN BG <70, and no IV access Heparin Sodium (Porcine) 5,000 unit 09/01/24 09:00 09/01/24 09:07 Heparin Sod Inj 5000 Unit/Ml Vial SC 09/15/24 08:59 Not Given Q12HR VESTA Lactated Ringer's 1,000 mls @ 50 mls/hr 09/01/24 08:45 09/01/24 09:07 Lactated Ringers IV 10/01/24 06:16 50 mls/hr .Q20H VESTA Administration Insulin Human Lispro 0 unit 09/01/24 11:30 09/01/24 12:58 Insulin Lispro (Admelog) 1 Unit/0.01 Ml Unit SC 10/01/24 11:29 Not Given ACHS [facility] Protocol Levothyroxine Sodium 50 mcg 09/01/24 06:00 09/01/24 05:11 Levothyroxine Sodium 25 Mcg Tablet PO 10/01/24 05:59 50 mcg ACBR VESTA Administration Ondansetron HCl 4 mg 08/31/24 22:13 Ondansetron Inj 2 Mg/Ml Inj 2 Ml IVP 09/30/24 22:12 Q6H PRN NAUSEA OR VOMITING Protocol Sennosides 1 tab 08/31/24 22:13 Senna Tablet PO 09/30/24 22:12 QDAY PRN constipation Protocol Plan Radha Nance is a 78-year-old female with a PMH of hypertension, diabetes, hypothyroidism, hyperlipidemia, and osteoarthritis who presents 09/01 with worsening shortness of breath. Patient was admitted for the work-up and management of right pleural effusion w/ associated shortness of breath and IRA versus CKD. #Right pleural effusion, exudative #Status post thoracentesis 09/01 #Postprocedural pneumothorax Large right pleural effusion seen on CTAP, chest CTA, and CXR. Total atelectasis of the right lung seen on chest CTA. Chest CTA was negative for pulmonary artery emboli. Status post ultrasound-guided thoracentesis 09/01. CXR after procedure showed 10% right apical pneumothorax, right chest tube placed. Cytology completed: pleural total protein 5.0, pleural LDH 96. Per Lights criteria, (serum total protein 7.2, serum LDH 232) effusion is exudative DDx: malignancy, infection, superior vena caval obstruction, hypothyroid pleural effusion, constrictive pericarditis, sarcoidosis Plan: - Pending echocardiogram -Pending body fluid culture w/ analysis and Gram stain - Pending serological tests for Cocci - Ordered repeat CXR tomorrow morning -Strict I's & O's -Daily weight -Aspiration precautions, elevate head of bed elevation #Elevated troponin - resolved Troponin 0.052 on admission, down trended to 0.046. Likely NSTEMI type II (cardiac strain from right pleural effusion). Less likely secondary to ID given that EKG does not show any ST elevation. #IRA vs. CKD IIIb Patient's baseline creatinine and renal function are unknown. Upon admission, her creatinine was elevated at 1.7 and her eGFR was low at 31. Plan: -Continue to monitor renal function #Hx of Hypothyroidism Patient takes PO levothyroxine 88 mcg at home. On admission, TSH low at 0.20, free T4 high at 2.04 (suggesting her current dose may actually be too much and pushing her into hyperthyroidism) Plan: - Continue PO levothyroxine 50 mcg - Hold home dose levothyroxine -Lipid panel came back with no significant findings #Diabetes type II Initially diagnosed as pre-diabetic. A1c 09/01 7.5. - Start patient on insulin regimen -Carb consistent low diet -Diabetes education #Hyperlipidemia ? Continue home dose atorvastatin Hospital Management: Disposition: s/p thoracentesis, postprocedural pneumothorax Diet: Cardiac GI Prophylaxis: Protonix Bowel Prophylaxis: Senna DVT Prophylaxis: SCDs, resume heparin tomorrow CODE STATUS: Full Code Patient plan of care was discussed with the resident, Dr. King, and attending physician, Dr. Bo. Liss Viera, PGY-1 - The patient's plan was discussed with attending Dr. Betzy King MD PGY2 Internal Medicine
--- NOTE | 2024-09-01 14:33 | PC.NURSE ---
Pt returned to room with right-sided chest tube in place, connected to low continuous suction. Chest tube drainage system is properly setup and functioning. Dressing at insertion is clean, dry and intact. Patient denies pain at this time. Vital signs are stable. Patient is receiving 2/L of oxygen via nasal cannula. Will continue to monitor respiratory status, chest tube output and insertion site condition.
--- NOTE | 2024-09-01 15:30 | XR_ITS ---
Examination: AP chest single view Technique one AP portable upright chest single view Date and time: September 01, 2024 at 1546 hours Comparison September 01, 2024 1207 hours INDICATIONS: Pneumothorax postthoracentesis today FINDINGS: Right chest tube satisfactory position Significant reexpansion right lung, 10% pneumothorax IMPRESSION: Significant reexpansion right lung, 10% right apical pneumothorax
[2024-09-01] MEDS: ACETAMINOPHEN 325 MG TABLET 650 MG PO (15:44)
[2024-09-01] MEDS: INSULIN LISPRO (AdmeLOG) 1 UNIT/0.01 ML UNIT SC ×2 (17:39→21:12)
[2024-09-01] MEDS: HYDROcodone/APAP 7.5/325 TABLET 1 TAB PO (17:50)
[2024-09-01] MEDS: ATORVASTATIN CALCIUM 20 MG TABLET PO (21:12)
[2024-09-02] VITALS (8 sets, daily range): BP systolic 109–135; BP diastolic 64–82; PULSE 57–81; RESP 14–21; TEMP 36.2–36.7; O2SAT 97–99
[2024-09-02 06:02] LABS: Basophils # (Auto) 0.1 Thou/mm3 (0.0-0.2); Basophils % (Auto) 1 % (0-2.5); Eosinophils # (Auto) 0.3 Thou/mm3 (0.0-0.5); Eosinophils % (Auto) 4 % (0-10); Hematocrit 43.4 % (36.0-46.0); Hemoglobin 14.3 g/dL (12.0-16.0); Immature Granulocytes Auto 0.01 Thou/mm3 (0.00-0.00); Lymphocytes # (Auto) 1.9 Thou/mm3 (1.0-4.8); Lymphocytes % (Auto) 26 % (10-50); Mean Corpuscular HGB Conc 32.9 g/dl (31.0-37.0); Mean Corpuscular Hemoglobin 30.6 pg (25.0-35.0); Mean Corpuscular Volume 93 fL (80-100); Monocytes # (Auto) 0.4 Thou/mm3 (0.0-0.8); Monocytes % (Auto) 6 % (0-12); Neutrophils # (Auto) 4.8 Thou/mm3 (1.8-7.7); Neutrophils % (Auto) 64 % (37-80); Nucleated Red Blood Cell # 0.00 Thou/mm3 (0.00-0.00); Nucleated Red Blood Cell % 0 /100 WBC (0); Platelet Count 146 Thou/mm3 (140-440); RDW Standard Deviation 41.2 fL (36.4-46.3); Red Blood Count 4.68 Miln/mm3 (4.00-5.20); White Blood Count 7.5 Thou/mm3 (3.6-11.0)
[2024-09-02] MEDS: LEVOTHYROXINE SODIUM 25 MCG TABLET 50 MCG PO (06:02)
[2024-09-02 06:35] LABS: Alanine Aminotransferase 10 U/L (10-49); Anion Gap 8 (7-16); Aspartate Amino Transferase 15 U/L (0-34); BUN/Creatinine Ratio 15 Ratio (12-20); Bilirubin,Total 1.1 mg/dL (0.3-1.2); Blood Urea Nitrogen 12 mg/dL (9-23); Calcium 8.9 mg/dL (8.3-10.6); Carbon Dioxide 31.4 mMol/L (20.0-31.0); Chloride 104 mMol/L (98-107); Creatinine (Component) 0.8 mg/dL (0.6-1.3); Estimated Creatinine Clearance 52.3 mL/min (>60); Glucose 106 mg/dL (74-106); Magnesium 1.6 mg/dL (1.6-2.6); Osmolality,Calculated 284 (275-295); Phosphorous 2.9 mg/dL (2.4-5.1); Potassium 4.6 mMol/L (3.4-5.1); Sodium 143 mMol/L (136-145); Total Protein 6.0 gm/dL (5.7-8.2); eGFR > 60 See Note
[2024-09-02 06:36] LABS: Albumin, Serum 3.6 gm/dL (3.4-4.8); Albumin/Globulin Ratio 1.5 (1.2-2.2); Alkaline Phosphatase 37 U/L (46-116); Calcium (Corrected) 9.2 mg/dL (8.5-10.1); Globulin 2.4 gm/dL (2.3-3.5)
--- NOTE | 2024-09-02 07:00 | XR_ITS ---
Examination: AP chest single view Technique: AP portable upright chest single view. Date and time: September 02, 2024, 0753 hrs. Comparison September 01, 2024. Indications: Shortness of breath postprocedure today Findings: Right chest tube satisfactory position Significant pneumonia right upper lobe Right lung is well expanded. Mild prominence of ventricle Impression: Significant pneumonia right upper lobe
[2024-09-02] MEDS: MORPHINE SULF INJ 10 MG/ML VIAL 2 MG IVP (09:04)
[2024-09-02] MEDS: HEPARIN SOD INJ 5000 UNIT/ML VIAL SC ×2 (09:05→22:04)
[2024-09-02] MEDS: PANTOPRAZOLE 20 MG TABLET PO (09:06)
[2024-09-02] MEDS: RINGERS LACTATED 1000 ML 1,000 ML 50 ML IV (09:06)
[2024-09-02] MEDS: DOXYCYCLINE INJ 100 MG in SODIUM CHLORIDE 0.9% (POP) 100 ML IV ×2 (11:18→21:55)
[2024-09-02] MEDS: INSULIN LISPRO (AdmeLOG) 1 UNIT/0.01 ML UNIT SC ×3 (12:03→22:06)
[2024-09-02] MEDS: PIPER/TAZO 3.375 GM PREMIX 3.375 GM/50 ML BAG IV ×2 (12:34→23:17)
[2024-09-02 13:34] LABS: Cocci Serology, IgG Negative (Negative)
--- NOTE | 2024-09-02 15:56 | PC.SS ---
Radha Nance is 78 year old female admitted to [facility] for SOB. SS conducted bedside contact with the patient to complete initial assessment and to discuss discharge planning.? SW used all precautionary measures to complete initial. Role and reason for the contact was explained to A Radha. Pt is alert and oriented times 4. Patient confirmed demographic information confirmed address on Facesheet. Pt lives with family. Patient identifies Ning Herzog, daughter, as her surrogate decision maker. Pt states prior to hospitalization she is able to complete all ADL?s independently and does not require DME nor O2. Pt does have walker and wheelchair. Pt confirmed no history of mental health or substance abuse. Pt does not have Advance life directive on file and not receptive to paper work. Pts PCP is Dr Placido Medina. Pharmacy of choice is [facility]. Discharge options discussed and the pt will ?return home. Pt family will provide transportation upon DC. No further intervention required at this time, social media marketing analyst would be available to address any further concerns. DC Plan: Home Contact: Ning Herzog, daughter, Address: Confirmed on face sheet PCP: Dr Placido Medina
--- NOTE | 2024-09-02 16:09 | ESPR_ITS ---
<Statement entered by Nirmal Bo MD - 09/12/24 07:45> I reviewed above note and agree with findings and plans. I have also personally examined the patient with medicine team and went over assessment and plan with medical team including sport intern and resident physician. Documentation for date of: 09/02/24 Subjective Subjective Interval history: No overnight events. Patient is now s/p chest tube placement on right pulmonary lung field. First 12 hours output about 325 cc and overnight output 250 cc, for a total of 575 ccs at the start of morning shift. Patient continues to have fluid drainage. Repeat chest x-ray noted to be in correct location with improved pneumothorax and decreased fluid. Given Exudative lights criteria, antibiotics initiated, 09/02/2024. Pending pleural culture. WBCs from pleural fluid noted at 33. Improved work of breathing on 3 liters [place] No chills, fever, or SOB reported overnight. Exam Vital Signs Temp Pulse Resp BP Pulse Ox O2 Del Method O2 Flow Rate 97.8 F 81 16 131/82 H 99 Nasal Cannula 3 09/02/24 11:49 09/02/24 11:49 09/02/24 11:49 09/02/24 11:49 09/02/24 11:49 09/02/24 11:49 09/02/24 11:49 Narrative Exam General Appearance: Alert & Oriented X3, well-nourished female who is lying in bed in no acute distres HEENT: Skull symmetrical and atraumatic. Conjunctivae pink and moist. Pupils equal, round, reactive to light and accommodation (PERRL). Cardio: Normal Rate and Rhythm with S1 and S2 heart sounds. No murmurs or extra heart sounds auscultated. No bruits on carotid auscultation. No peripheral edema or cyanosis. Lungs: Symmetric with good expansion. Chest and back non-tender. Breath sounds vesicular without crackles, minimal rhonichi noted. Abdomen: Non-tender, Non-distended, Normal Reactive Bowel Sounds Neuro: Alert, cooperative, oriented to person, place, and time. Speech clear. CN grossly intact. Upper motor strength 5/5 and Lower motor strength 5/5. Sensation intact. Objective Labs 09/02/24 05:03 09/02/24 05:03 Labs: Laboratory Results - last 24 hr 09/01/24 09/02/24 02:27 05:03 WBC 7.5 RBC 4.68 Hgb 14.3 Hct 43.4 MCV 93 MCH 30.6 MCHC 32.9 RDW Std Deviation 41.2 Plt Count 146 D Neut % (Auto) 64 Lymph % (Auto) 26 [place] % (Auto) 6 Eos % (Auto) 4 Baso % (Auto) 1 Neut # (Auto) 4.8 Lymph # (Auto) 1.9 [place] # (Auto) 0.4 Eos # (Auto) 0.3 Baso # (Auto) 0.1 Immature Gran # (Auto) 0.01 H Absolute Nucleated RBC 0.00 Immature Gran % 0 Nucleated RBC % 0 Sodium 143 Potassium 4.6 D Chloride 104 Carbon Dioxide 31.4 H Anion Gap 8 BUN 12 Creatinine 0.8 D Estim Creat Clear Calc 52.3 L eGFR > 60 BUN/Creatinine Ratio 15 Glucose 106 Calculated Osmolality 284 Calcium 8.9 Corrected Calcium 9.2 Phosphorus 2.9 Magnesium 1.6 Total Bilirubin 1.1 AST 15 ALT 10 Alkaline Phosphatase 37 L Total Protein 6.0 Albumin 3.6 D Globulin 2.4 Albumin/Globulin Ratio 1.5 Coccidioides IgG Ab Negative ABG Interpretation ABG results: 08/31/24 19:48 ABG pH 7.45 ABG pCO2 46 ABG pO2 63 L ABG HCO3 32 H ABG O2 Saturation 93 ABG Base Excess 7 H Quality Measures Quality Measures none Advance care planning discussed with:: patient Assessment & Plan Assessment Current Active Medications: Generic Name Dose Route Start Last Admin Trade Name Freq PRN Reason Stop Dose Admin Acetaminophen 650 mg 08/31/24 22:13 09/01/24 15:44 Acetaminophen 325 Mg Tablet PO 09/30/24 22:12 650 mg Q6H PRN Administration PAIN SCALE 1-3 (mild Amlodipine Besylate 5 mg 09/02/24 09:00 09/02/24 09:05 Amlodipine Besylate 5 Mg Tablet PO 10/02/24 08:59 5 mg QDAY VESTA Administration Atorvastatin Calcium 20 mg 09/01/24 21:00 09/01/24 21:12 Atorvastatin Calcium 20 Mg Tablet PO 10/01/24 20:59 20 mg HS VESTA Administration Dextrose 25 ml 09/01/24 09:11 Dextrose 50%-Water Inj 50 Ml Syringe IV 10/01/24 09:10 Q15MIN PRN BG 50-70 responsive npo pt Dextrose 50 ml 07/18/25 09:11 Dextrose 50%-Water Inj 50 Ml Syringe IV 10/01/24 09:10 Q15MIN PRN BG <50 OR BG <70 & pt unresponsive Glucagon 1 mg 09/01/24 09:11 Glucagon Inj 1 Mg Vial IM Q15MIN PRN BG <70, and no IV access Heparin Sodium (Porcine) 5,000 unit 09/02/24 09:00 09/02/24 09:05 Heparin Sod Inj 5000 Unit/Ml Vial SC 09/16/24 08:59 5,000 unit Q12HR VESTA Administration Lactated Ringer's 1,000 mls @ 50 mls/hr 09/01/24 08:45 09/02/24 09:06 Lactated Ringers IV 10/01/24 06:16 50 mls/hr .Q20H VSETA Administration Piperacillin/Tazobactam/Dextrose 3.375 gm in 50 mls @ 12.5 mls/hr 09/02/24 22:00 Zosyn IV 09/09/24 21:59 Q8HR VESTA Doxycycline Hyclate 100 mg/ 100 mls @ 100 mls/hr 09/02/24 11:00 09/02/24 11:18 Sodium Chloride IV 09/09/24 10:59 100 mls/hr BID VESTA Administration Insulin Human Lispro 0 unit 09/01/24 11:30 09/02/24 12:03 Insulin Lispro (Admelog) 1 Unit/0.01 Ml Unit SC 10/01/24 11:29 2 unit ACHS VESTA Administration Protocol Ketorolac Tromethamine 15 mg 09/02/24 14:37 Ketorolac Inj 30 Mg/Ml Vial IVP 09/07/24 14:36 Q6HR PRN PAIN SCALE 4-6 (Moderate Levothyroxine Sodium 50 mcg 09/01/24 06:00 09/02/24 06:02 Levothyroxine Sodium 25 Mcg Tablet PO 10/01/24 05:59 50 mcg ACBR VESTA Administration Morphine Sulfate 2 mg 09/01/24 15:42 09/02/24 09:04 Morphine Sulf Inj 10 Mg/Ml Vial IVP 09/06/24 15:37 2 mg Q4HR PRN Administration BREAKTHROUGH PAIN (SEVERE) Ondansetron HCl 4 mg 08/31/24 22:13 Ondansetron Inj 2 Mg/Ml Inj 2 Ml IVP 09/30/24 22:12 Q6H PRN NAUSEA OR VOMITING Protocol Pantoprazole Sodium 20 mg 09/02/24 09:00 09/02/24 09:06 Pantoprazole 20 Mg Tablet PO 10/02/24 08:59 20 mg QDAY VESTA Administration Sennosides 1 tab 08/31/24 22:13 Senna Tablet PO 09/30/24 22:12 QDAY PRN constipation Protocol Plan Radha Nance is a 78-year-old female with a PMH of hypertension, diabetes, hypothyroidism, hyperlipidemia, and osteoarthritis who presents 09/01 with worsening shortness of breath. Patient was admitted for the work-up and management of right pleural effusion w/ associated shortness of breath and IRA versus CKD. #Acute Hypoxic Respiratory Failures, secondary to pleural effusion #Right pleural effusion, likely exudative #Status post thoracentesis 09/01 #Postprocedural pneumothorax Patient preseneted with increased work of breathing spO2 of 92%, required nasal cannual. Chest x-ray noted for large right pleural effusion. CTA noted negative PE, large right pleural effusion with total atelectatsis of right lung, pneumothorax likely triggered event. Light criteria noted Exudate, likely malignancy given large lesion on kidney noted vs paraapneumonic in nature can note be ruled out but less likely as no fever noted, WBC within normal limts, and Pleural WBC 5 vs less likely Auto-immune Large right pleural effusion seen on CTAP, chest CTA, and CXR. Total atelectasis of the right lung seen on chest CTA. Chest CTA was negative for pulmonary artery emboli. Status post ultrasound-guided thoracentesis 09/01. CXR after procedure showed 10% right apical pneumothorax, right chest tube placed. Pleural Studies: pleural total protein 5.0, pleural LDH 96. Per Lights criteria, (serum total protein 7.2, serum LDH 232) effusion is exudative Ig M negative Plan: -Zosyn (09/02/2024--) -Conitnue to monitor until chest output is <50cc, clamp then xray -Pending body fluid culture w/ analysis and Gram stain -Pending Cytology -EMILY w/ reflex -Pending IgG Cocci -Strict I's & O's -Daily weight -Aspiration precautions, elevate head of bed elevation -Surgery Consulted, Dr. Villa, appreciate recommentions on managment of chest tube. #IRA, improved Patient's baseline creatinine and renal function are unknown. Upon admission, her creatinine was elevated at 1.7 which likely IRA if Cr baseline assumed at 1. BUN/Cr ration noted 8 concern for intrisnic kidney injury. CKD can not be ruled out given unknonw baseline Patient conitnues to have urine out. Plan: -Avoid nephrotoxins -Renally dose medication -Continue to monitor renal function and urine output -consider renal consult if kidney funciton worsens. #Hx of Hypothyroidism Patient takes PO levothyroxine 88 mcg at home. On admission, TSH low at 0.20, free T4 high at 2.04 (suggesting her current dose may actually be too much and pushing her into hyperthyroidism) Plan: - Continue PO levothyroxine 50 mcg - Hold home dose levothyroxine -Lipid panel came back with no significant findings #Diabetes type II Initially diagnosed as pre-diabetic. A1c 09/01 7.5. - Start patient on insulin regimen -Carb consistent low diet -Diabetes education #Hypertension Home medication of Amlodipine 5 mg qday and Telmisartan-Hydrochlorothiazid Plan -Resumed Amlodipine at higher dose 10 mg Qday -if need need be add Losartan for inpatient management #Hyperlipidemia ? Continue home dose atorvastatin #Incidental on CT 4 cm right parapelvic cyst -outpatient follow up #Elevated troponin - resolved Health Maintenance: Disp: Pt is currently admitted to floors for further management of large pleural effusion and acute hypoxic respiratory distress , awaiting pleural cultures and cytology. FEN: Caridac Diet DVT: on subQ heparin Q12 Code: Full Code - The patient's plan was discussed with attending Dr. Betzy King MD PGY2 Internal Medicine
[2024-09-02] MEDS: KETOROLAC INJ 30 MG/ML VIAL 15 MG IVP ×2 (17:15→23:17)
[2024-09-02] MEDS: ATORVASTATIN CALCIUM 20 MG TABLET PO (21:55)
[2024-09-03] VITALS (7 sets, daily range): BP systolic 102–126; BP diastolic 63–71; PULSE 57–84; RESP 14–18; TEMP 36.2–36.7; O2SAT 94–100
--- NOTE | 2024-09-03 02:42 | PC.NURSE ---
Dr. Broderick notified of patient complaining of diaphoresis, heart palpitations, weird feeling in the back of the neck after receiving zosyn (this RN had told patient this was her first dose so to let them know if any symptoms). Patient's daughter said that maybe she is over thinking it. This RN found that patient also had this med yesterday around 1230 and they updated MD about that; patient also updated about taking yesterday afternoon. Will continue to monitor.
[2024-09-03 05:21] LABS: Basophils # (Auto) 0.1 Thou/mm3 (0.0-0.2); Basophils % (Auto) 1 % (0-2.5); Eosinophils # (Auto) 0.3 Thou/mm3 (0.0-0.5); Eosinophils % (Auto) 4 % (0-10); Hematocrit 41.1 % (36.0-46.0); Hemoglobin 14.2 g/dL (12.0-16.0); Immature Granulocytes Auto 0.01 Thou/mm3 (0.00-0.00); Lymphocytes # (Auto) 1.6 Thou/mm3 (1.0-4.8); Lymphocytes % (Auto) 24 % (10-50); Mean Corpuscular HGB Conc 34.5 g/dl (31.0-37.0); Mean Corpuscular Hemoglobin 30.6 pg (25.0-35.0); Mean Corpuscular Volume 89 fL (80-100); Monocytes # (Auto) 0.4 Thou/mm3 (0.0-0.8); Monocytes % (Auto) 7 % (0-12); Neutrophils # (Auto) 4.2 Thou/mm3 (1.8-7.7); Neutrophils % (Auto) 63 % (37-80); Nucleated Red Blood Cell # 0.00 Thou/mm3 (0.00-0.00); Nucleated Red Blood Cell % 0 /100 WBC (0); Platelet Count 161 Thou/mm3 (140-440); RDW Standard Deviation 38.5 fL (36.4-46.3); Red Blood Count 4.64 Miln/mm3 (4.00-5.20); White Blood Count 6.6 Thou/mm3 (3.6-11.0)
[2024-09-03 05:49] LABS: Alanine Aminotransferase 25 U/L (10-49); Albumin, Serum 3.3 gm/dL (3.4-4.8); Albumin/Globulin Ratio 1.4 (1.2-2.2); Alkaline Phosphatase 44 U/L (46-116); Anion Gap 8 (7-16); Aspartate Amino Transferase 28 U/L (0-34); BUN/Creatinine Ratio 11 Ratio (12-20); Bilirubin,Total 0.9 mg/dL (0.3-1.2); Blood Urea Nitrogen 10 mg/dL (9-23); Calcium 8.5 mg/dL (8.3-10.6); Calcium (Corrected) 9.1 mg/dL (8.5-10.1); Carbon Dioxide 27.8 mMol/L (20.0-31.0); Chloride 106 mMol/L (98-107); Creatinine (Component) 0.9 mg/dL (0.6-1.3); Estimated Creatinine Clearance 45.6 mL/min (>60); Globulin 2.4 gm/dL (2.3-3.5); Glucose 90 mg/dL (74-106); Magnesium 1.5 mg/dL (1.6-2.6); Osmolality,Calculated 282 (275-295); Phosphorous 3.3 mg/dL (2.4-5.1); Potassium 3.7 mMol/L (3.4-5.1); Sodium 142 mMol/L (136-145); Total Protein 5.7 gm/dL (5.7-8.2); eGFR > 60 See Note
[2024-09-03] MEDS: LEVOTHYROXINE SODIUM 25 MCG TABLET 50 MCG PO (06:06)
[2024-09-03] MEDS: RINGERS LACTATED 1000 ML 1,000 ML 50 ML IV (06:06)
[2024-09-03] MEDS: PIPER/TAZO 3.375 GM PREMIX 3.375 GM/50 ML BAG IV ×3 (06:11→21:11)
--- NOTE | 2024-09-03 08:08 | XR_ITS ---
Examination: CT chest with intravenous contrast 2-D sagittal and coronal reconstructions Exam date and time: September 03, 2024, 1257 hrs. Comparison August 31, 2024 Indications: History large right pleural effusion, post thoracentesis, pneumothorax post thoracentesis post chest tube placement CTDI:vol (mGy) 9.61 DLP: (mGycm) 317 Technique: Multiple axial sections of the thorax have been obtained. Sections have been obtained, 3 mm slice thickness. Mediastinal and lung density settings have been obtained. Intravenous contrast administered, 60 cc Isovue-370. 2-D sagittal, coronal images obtained. Low dose protocols were performed. One or more of the following dose reduction techniques were used; automated exposure control, adjustment of the mA and/or KV according to patient size, use of iterative reconstruction technique. Findings: No thoracic aortic aneurysm dilatation No pulmonary artery filling defects No paratracheal tracheobronchial or bronchopulmonary adenopathy. Soft opacities throughout the right lung consistent with pneumonia Right chest tube satisfactory position with full expansion right lung Minimal right pleural disease No visualized liver or splenic lesion No pancreatic or adrenal mass Partial visualization benign right renal cyst Impression: Diffuse pneumonia right lung Right chest tube satisfactory position with full expansion right lung
[2024-09-03 08:42] LABS: C-Reactive Protein 2.0 mg/dL (0.0-0.9)
[2024-09-03 08:43] LABS: Sed Rate (ESR) 13 mm/hr (0-30)
[2024-09-03] MEDS: HEPARIN SOD INJ 5000 UNIT/ML VIAL SC ×2 (09:11→21:14)
[2024-09-03] MEDS: DOXYCYCLINE INJ 100 MG in SODIUM CHLORIDE 0.9% (POP) 100 ML IV (09:11)
[2024-09-03] MEDS: PANTOPRAZOLE 20 MG TABLET PO (09:11)
[2024-09-03] MEDS: Magnesium Sulfate 2 GM Ivpb 2 GM/50 ML BAG IV (09:15)
--- NOTE | 2024-09-03 10:32 | XR_ITS ---
Examination: AP chest single view Technique: Portable AP sitting chest single view Date and time: September 03, 2024, 1040 hrs. Comparison September 02, 2024 Indications: Significant pneumonia right upper lobe on chest film yesterday Findings: Pneumonia in the right upper lobe has cleared Mild enlargement left ventricle No interval pulmonary edema or pneumonia. The osseous structures are intact. Impression: Pneumonia right upper lobe has cleared
--- NOTE | 2024-09-03 11:27 | ESPR_ITS ---
<Statement entered by Nirmal Bo MD - 09/12/24 07:46> I reviewed above note and agree with findings and plans. I have also personally examined the patient with medicine team and went over assessment and plan with medical team including financial analyst intern and resident physician. Documentation for date of: 09/03/24 Senior resident attestation: Patient evaluated and examined at the bedside, plan of care discussed with rest of the team including my attending physician, except as noted. Patient stays asymptomatic, chest tube in place, significant output overnight, Pleur-evac under waterseal is connected to suction, exudative pleural effusion on urinalysis, pending Gram stain and cytology report from pathologist. Patient continues to be afebrile, ordered cocci serology which was negative. ESR CRP were unremarkable. Chest CT Showed diffuse pneumonia in right lung, and soft opacities throughout right lung consistent with pneumonia. Chest tube in satisfactory position with full expansion, no pneumothorax noted on follow-up imaging. Will continue to monitor output, consider clamping if output less than 100 cc overnight. Quresh PGY3 Subjective Subjective Interval history: Reported palpitations and diaphoresis overnight after receiving Zosyn, likely due to anxiety as patient tolerated abx yesterday without symptoms. Patient seen and examined at bedside this AM. Chest tube intact, continues to drain (output 40 cc overnight, 200 cc this morning). Surgery consulted, will consider removing chest tube when less than 50 cc drainage over 24 hours. Creatinine 0.9 this morning, patient likely had IRA. Will hold doxycycline for now, continue Zosyn. Pending pleural culture. Ordered cocci serology, due to chronic buildup of pleural fluid. Ordered ESR and CRP to determine possible malignancy etiology. Pending repeat CXR. Ordered CT chest. Per daughter, no known family history of cancer. Last mammo in 10/2023 showed 4 mm focal asymmetry upper outer right breast anterior depth and 6 mm focal asymmetry upper left breast MLO view. Recommended follow up spot tomography, recommend follow up outpatient. Review of systems otherwise negative except what is mentioned above. Exam Vital Signs Temp Pulse Resp BP Pulse Ox O2 Del Method O2 Flow Rate 97.2 F 69 18 124/70 97 Nasal Cannula 3 09/03/24 08:00 09/03/24 09:11 09/03/24 08:00 09/03/24 09:11 09/03/24 08:00 09/03/24 08:00 09/03/24 08:00 Narrative Exam Physical Exam General: Awake and in no acute distress. Conversational and non-toxic appearing. HEENT: Normocephalic, atraumatic, mucous membranes moist. Heart: Regular rate and rhythm, normal S1 and S2, no murmurs. Lungs: Decreased breath sounds in right lower lobe. Clear to auscultation all other lobes. Abdomen: Soft, nondistended, nontender, positive bowel sounds. No guarding or rebound tenderness. Neurologic: Alert and oriented x3, no gross neurological deficit, and patient able to move all 4 extremities. Extremities: No edema. Skin: No rash or ecchymoses. Objective Labs 09/04/24 04:28 09/04/24 04:28 Labs: Laboratory Results - last 24 hr 09/01/24 09/03/24 02:27 04:15 WBC 6.6 RBC 4.64 Hgb 14.2 Hct 41.1 MCV 89 MCH 30.6 MCHC 34.5 RDW Std Deviation 38.5 Plt Count 161 Neut % (Auto) 63 Lymph % (Auto) 24 [place] % (Auto) 7 Eos % (Auto) 4 Baso % (Auto) 1 Neut # (Auto) 4.2 Lymph # (Auto) 1.6 [place] # (Auto) 0.4 Eos # (Auto) 0.3 Baso # (Auto) 0.1 Immature Gran # (Auto) 0.01 H Absolute Nucleated RBC 0.00 Immature Gran % 0 Nucleated RBC % 0 ESR 13 Sodium 142 Potassium 3.7 D Chloride 106 Carbon Dioxide 27.8 Anion Gap 8 BUN 10 Creatinine 0.9 Estim Creat Clear Calc 45.6 L eGFR > 60 BUN/Creatinine Ratio 11 L Glucose 90 Calculated Osmolality 282 Calcium 8.5 Corrected Calcium 9.1 Phosphorus 3.3 Magnesium 1.5 L Total Bilirubin 0.9 AST 28 ALT 25 Alkaline Phosphatase 44 L C-Reactive Prot, Quant 2.0 H Total Protein 5.7 Albumin 3.3 L Globulin 2.4 Albumin/Globulin Ratio 1.4 Coccidioides IgG Ab Negative ABG Interpretation ABG results: 08/31/24 19:48 ABG pH 7.45 ABG pCO2 46 ABG pO2 63 L ABG HCO3 32 H ABG O2 Saturation 93 ABG Base Excess 7 H Quality Measures Quality Measures none Advance care planning discussed with:: patient Assessment & Plan Assessment Current Active Medications: Generic Name Dose Route Start Last Admin Trade Name Freq PRN Reason Stop Dose Admin Acetaminophen 650 mg 08/31/24 22:13 09/01/24 15:44 Acetaminophen 325 Mg Tablet PO 09/30/24 22:12 650 mg Q6H PRN Administration PAIN SCALE 1-3 (mild Amlodipine Besylate 5 mg 09/02/24 09:00 09/03/24 09:11 Amlodipine Besylate 5 Mg Tablet PO 10/02/24 08:59 5 mg QDAY VESTA Administration Atorvastatin Calcium 20 mg 09/01/24 21:00 09/02/24 21:55 Atorvastatin Calcium 20 Mg Tablet PO 10/01/24 20:59 20 mg HS VESTA Administration Dextrose 25 ml 09/01/24 09:11 Dextrose 50%-Water Inj 50 Ml Syringe IV 10/01/24 09:10 Q15MIN PRN BG 50-70 responsive npo pt Dextrose 50 ml 09/01/24 09:11 Dextrose 50%-Water Inj 50 Ml Syringe IV 10/01/24 09:10 Q15MIN PRN BG <50 OR BG <70 & pt unresponsive Glucagon 1 mg 09/01/24 09:11 Glucagon Inj 1 Mg Vial IM Q15MIN PRN BG <70, and no IV access Heparin Sodium (Porcine) 5,000 unit 09/02/24 09:00 09/03/24 09:11 Heparin Sod Inj 5000 Unit/Ml Vial SC 09/16/24 08:59 5,000 unit Q12HR VESTA Administration Lactated Ringer's 1,000 mls @ 50 mls/hr 09/01/24 08:45 09/03/24 06:06 Lactated Ringers IV 10/01/24 06:16 50 mls/hr .Q20H VESTA Administration Piperacillin/Tazobactam/Dextrose 3.375 gm in 50 mls @ 12.5 mls/hr 09/02/24 22:00 09/03/24 06:11 Zosyn IV 09/09/24 21:59 12.5 mls/hr Q8HR VESTA Administration Doxycycline Hyclate 100 mg/ 100 mls @ 100 mls/hr 09/02/24 11:00 09/03/24 09:11 Sodium Chloride IV 09/09/24 10:59 100 mls/hr BID VESTA Administration Insulin Human Lispro 0 unit 09/01/24 11:30 09/03/24 07:29 Insulin Lispro (Admelog) 1 Unit/0.01 Ml Unit SC 10/01/24 11:29 Not Given ACHS VESTA Protocol Ketorolac Tromethamine 15 mg 09/02/24 14:37 09/02/24 23:17 Ketorolac Inj 30 Mg/Ml Vial IVP 09/07/24 14:36 15 mg Q6HR PRN Administration PAIN SCALE 4-6 (Moderate Levothyroxine Sodium 50 mcg 09/01/24 06:00 09/03/24 06:06 Levothyroxine Sodium 25 Mcg Tablet PO 10/01/24 05:59 50 mcg ACBR VESTA Administration Morphine Sulfate 2 mg 09/01/24 15:42 09/02/24 09:04 Morphine Sulf Inj 10 Mg/Ml Vial IVP 09/06/24 15:37 2 mg Q4HR PRN Administration BREAKTHROUGH PAIN (SEVERE) Ondansetron HCl 4 mg 08/31/24 22:13 Ondansetron Inj 2 Mg/Ml Inj 2 Ml IVP 09/30/24 22:12 Q6H PRN NAUSEA OR VOMITING Protocol Pantoprazole Sodium 20 mg 09/02/24 09:00 09/03/24 09:11 Pantoprazole 20 Mg Tablet PO 10/02/24 08:59 20 mg QDAY VESTA Administration Sennosides 1 tab 08/31/24 22:13 Senna Tablet PO 09/30/24 22:12 QDAY PRN constipation Protocol Plan Radha Nance is a 78-year-old female with a PMH of hypertension, diabetes, hypothyroidism, hyperlipidemia, and osteoarthritis who presents 09/01 with worsening shortness of breath. Patient was admitted for the work-up and management of right pleural effusion w/ associated shortness of breath and IRA. #Acute Hypoxic Respiratory Failure, secondary to pleural effusion #Right pleural effusion, exudative #Status post thoracentesis 09/01 #Postprocedural pneumothorax - resolved #Right upper pneumonia #Incidental on CT 4 cm right parapelvic cyst Patient preseneted with increased work of breathing spO2 of 92%, required nasal cannual. Chest x-ray noted for large right pleural effusion. CTA noted negative PE, large right pleural effusion with total atelectatsis of right lung, pneumothorax likely triggered event. Light criteria noted Exudate, likely malignancy given large lesion on kidney noted vs paraapneumonic in nature can note be ruled out but less likely as no fever noted, WBC within normal limts, and Pleural WBC 5 vs less likely Auto-immune. Of note, CT A/P noted 4 cm right parapelvic cyst, on image review, mass appears to be on right kidney. Large right pleural effusion seen on CTAP, chest CTA, and CXR. Total atelectasis of the right lung seen on chest CTA. Chest CTA was negative for pulmonary artery emboli. Status post ultrasound-guided thoracentesis 09/01. CXR after procedure showed 10% right apical pneumothorax, right chest tube placed. Pleural Studies: pleural total protein 5.0, pleural LDH 96. Per Lights criteria, (serum total protein 7.2, serum LDH 232) effusion is exudative, Ig M negative 09/03: ESR 13 (WNL), CRP elevated at 2.0, repeat CXR shows resolution of right upper pneumonia. Plan: -Ordered CT chest -Ordered cocci -Continue Zosyn (09/02/2024--) -Discontinue doxycycline as zosyn is adequate -Continue to monitor until chest output is <50cc, clamp then xray -Pending body fluid culture w/ analysis and Gram stain -Pending Cytology -EMILY w/ reflex -Pending IgG Cocci -Strict I's & O's -Daily weight -Aspiration precautions, elevate head of bed elevation -Surgery Consulted, Dr. Villa, appreciate recommendations on management of chest tube -Consider outpatient work up for renal cyst #IRA - resolved Patient's baseline creatinine and renal function are unknown. Upon admission, her creatinine was elevated at 1.7 which likely IRA if Cr baseline assumed at 1. Creatinine now 0.9. CKD can not be ruled out given unknown baseline. Good urine output. Plan: -Avoid nephrotoxins -Renally dose medication -Continue to monitor renal function and urine output -consider traffic enumerator consult if kidney funciton worsens #Hx of Hypothyroidism Patient takes PO levothyroxine 88 mcg at home. On admission, TSH low at 0.20, free T4 high at 2.04 (suggesting her current dose may actually be too much and pushing her into hyperthyroidism) Plan: - Continue PO levothyroxine 50 mcg - Hold home dose levothyroxine -Lipid panel came back with no significant findings #Diabetes type II Initially diagnosed as pre-diabetic. A1c 09/01 7.5. - Start patient on insulin regimen -Carb consistent low diet -Diabetes education #Hypertension Home medication of Amlodipine 5 mg qday and Telmisartan-Hydrochlorothiazid Plan -Continue Amlodipine at higher dose 10 mg Qday -if need need be add Losartan for inpatient management #Hyperlipidemia ? Continue home dose atorvastatin #Elevated troponin - resolved Health Maintenance: Disp: further management of large pleural effusion and acute hypoxic respiratory distress , awaiting pleural cultures and cytology. FEN: Caridac Diet DVT: on subQ heparin Q12 Code: Full Code Patient plan of care was discussed with the senior resident, Dr. Herrera, and attending physician, Dr. Bo. Liss Viera, PGY-1
[2024-09-03] MEDS: INSULIN LISPRO (AdmeLOG) 1 UNIT/0.01 ML UNIT SC ×2 (11:59→21:14)
[2024-09-03] MEDS: ATORVASTATIN CALCIUM 20 MG TABLET PO (21:11)
[2024-09-03] MEDS: KETOROLAC INJ 30 MG/ML VIAL 15 MG IVP (21:37)
[2024-09-04] VITALS (9 sets, daily range): BP systolic 101–135; BP diastolic 60–69; PULSE 61–97; RESP 14–19; TEMP 36.3–37.1; O2SAT 93–99; BMI 26.7
[2024-09-04] MEDS: LEVOTHYROXINE SODIUM 25 MCG TABLET 50 MCG PO (05:53)
[2024-09-04] MEDS: RINGERS LACTATED 1000 ML 1,000 ML 50 ML IV (05:53)
[2024-09-04] MEDS: PIPER/TAZO 3.375 GM PREMIX 3.375 GM/50 ML BAG IV ×3 (05:53→21:06)
[2024-09-04 07:59] LABS: Basophils # (Auto) 0.1 Thou/mm3 (0.0-0.2); Basophils % (Auto) 1 % (0-2.5); Eosinophils # (Auto) 0.3 Thou/mm3 (0.0-0.5); Eosinophils % (Auto) 5 % (0-10); Hematocrit 40.5 % (36.0-46.0); Hemoglobin 13.5 g/dL (12.0-16.0); Immature Granulocytes Auto 0.01 Thou/mm3 (0.00-0.00); Lymphocytes # (Auto) 1.4 Thou/mm3 (1.0-4.8); Lymphocytes % (Auto) 25 % (10-50); Mean Corpuscular HGB Conc 33.3 g/dl (31.0-37.0); Mean Corpuscular Hemoglobin 30.7 pg (25.0-35.0); Mean Corpuscular Volume 92 fL (80-100); Monocytes # (Auto) 0.4 Thou/mm3 (0.0-0.8); Monocytes % (Auto) 7 % (0-12); Neutrophils # (Auto) 3.4 Thou/mm3 (1.8-7.7); Neutrophils % (Auto) 62 % (37-80); Nucleated Red Blood Cell # 0.00 Thou/mm3 (0.00-0.00); Nucleated Red Blood Cell % 0 /100 WBC (0); Platelet Count 172 Thou/mm3 (140-440); RDW Standard Deviation 41.0 fL (36.4-46.3); Red Blood Count 4.40 Miln/mm3 (4.00-5.20); White Blood Count 5.4 Thou/mm3 (3.6-11.0)
[2024-09-04 08:00] LABS: Alanine Aminotransferase 22 U/L (10-49); Albumin, Serum 3.3 gm/dL (3.4-4.8); Albumin/Globulin Ratio 1.8 (1.2-2.2); Alkaline Phosphatase 39 U/L (46-116); Anion Gap 9 (7-16); Aspartate Amino Transferase 26 U/L (0-34); BUN/Creatinine Ratio 16 Ratio (12-20); Bilirubin,Total 0.5 mg/dL (0.3-1.2); Blood Urea Nitrogen 14 mg/dL (9-23); Calcium 8.2 mg/dL (8.3-10.6); Calcium (Corrected) 8.8 mg/dL (8.5-10.1); Carbon Dioxide 29.4 mMol/L (20.0-31.0); Chloride 105 mMol/L (98-107); Creatinine (Component) 0.9 mg/dL (0.6-1.3); Estimated Creatinine Clearance 45.6 mL/min (>60); Globulin 1.8 gm/dL (2.3-3.5); Glucose 91 mg/dL (74-106); Magnesium 1.9 mg/dL (1.6-2.6); Osmolality,Calculated 285 (275-295); Phosphorous 3.3 mg/dL (2.4-5.1); Potassium 4.7 mMol/L (3.4-5.1); Sodium 143 mMol/L (136-145); Total Protein 5.1 gm/dL (5.7-8.2); eGFR > 60 See Note
--- NOTE | 2024-09-04 08:28 | PC.NURSE ---
DR. JOHANSEN MADE AWARE PTS HR DOWN TO 51 DIDN'T SUSTAIN, UP TO 67, UPON ENTERING ROOM PATIENT RESTING IN BED ALERT AND ORIENTED X3 DAUGHTER AT BEDSIDE, PT DID C/O MUSCLE LIKE DISCOMFORT TO CHEST, NO DIFFICULT BREATHING, DENIES HEADACHE, SHE DID MENTION SHE WAS HOLDING HER URINE AND TRYING NOT TO GO URINATE DUE TO NOT INCONVENIENCE FAMILY OR STAFF. NURSE DID EDUCATE PT ON COMPLICATIONS OF HOLDING URINE WHICH CAN TURN INTO INFECTION PT VERBALIZE UNDERSTANDING AND WILL CALL FOR ASSISTANCE. NO NEW ORDERS AT THIS TIME. WILL CONTINUE TO MONITOR PT.
[2024-09-04] MEDS: HEPARIN SOD INJ 5000 UNIT/ML VIAL SC ×2 (09:43→20:58)
[2024-09-04] MEDS: PANTOPRAZOLE 20 MG TABLET PO (09:44)
[2024-09-04] MEDS: ACETAMINOPHEN 325 MG TABLET 650 MG PO (10:14)
[2024-09-04] MEDS: INSULIN LISPRO (AdmeLOG) 1 UNIT/0.01 ML UNIT SC ×2 (11:48→17:54)
--- NOTE | 2024-09-04 13:28 | ESPR_ITS ---
<Statement entered by Nirmal Bo MD - 09/12/24 08:02> I reviewed above note and agree with findings and plans. I have also personally examined the patient with medicine team and went over assessment and plan with medical team including human resource internship and resident physician. Documentation for date of: 09/04/24 NO overnight events. Patient examined at bedside. Discussed at length with family members about current pending laboratory studies, including cytology and pleural cultures. Continue IV antibioitcs. [address] Nicolas, electronic engraver, consulted. STOP SUCTION for pleur evac and jaymie current levels. Follow up with chest xray AM. Clamp tomorrow morning if there is minimal and repeat Cxr at noon. Patient is anxious given chest tube and pending results, started hydroxyzine and melatonin HS. Subjective Subjective Interval history: No acute events overnight but patient reports she did not sleep well, will order melatonin tonight. Patient was seen at bedside this AM. Chest tube still draining, output 240 mL over past [address] engraver [address] Nicolas for chest tube management, will stop suction today and will monitor output overnight. Anticipate clamping tube if less than 100 mL, then will repeat CXR after 6 hours tomorrow. Patient is still on oxygen, slowly weaning, otherwise stable. Pending pleural cultures and analysis. WBC still within normal limits. Review of systems otherwise negative except what is mentioned above. Exam Vital Signs Temp Pulse Resp BP Pulse Ox O2 Del Method O2 Flow Rate 97.4 F 61 15 115/69 98 Nasal Cannula 2 09/04/24 12:00 09/04/24 13:14 09/04/24 12:00 09/04/24 12:00 09/04/24 12:00 09/04/24 12:09/04/24 12:00 Narrative Exam Physical Exam General: Awake and in no acute distress. Conversational and non-toxic appearing. HEENT: Normocephalic, atraumatic, mucous membranes moist. Heart: Regular rate and rhythm, normal S1 and S2, no murmurs. Lungs: Decreased breath sounds in right lower lobe. Clear to auscultation all other lobes. Abdomen: Soft, nondistended, nontender, positive bowel sounds. No guarding or rebound tenderness. Neurologic: Alert and oriented x3, no gross neurological deficit, and patient able to move all 4 extremities. Extremities: No edema. Skin: No rash or ecchymoses. Objective Labs 09/04/24 04:28 09/04/24 04:28 Labs: Laboratory Results - last 24 hr 09/04/24 04:28 WBC 5.4 RBC 4.40 Hgb 13.5 Hct 40.5 MCV 92 MCH 30.7 MCHC 33.3 RDW Std Deviation 41.0 Plt Count 172 Neut % (Auto) 62 Lymph % (Auto) 25 [place] % (Auto) 7 Eos % (Auto) 5 Baso % (Auto) 1 Neut # (Auto) 3.4 Lymph # (Auto) 1.4 [place] # (Auto) 0.4 Eos # (Auto) 0.3 Baso # (Auto) 0.1 Immature Gran # (Auto) 0.01 H Absolute Nucleated RBC 0.00 Immature Gran % 0 Nucleated RBC % 0 Sodium 143 Potassium 4.7 D Chloride 105 Carbon Dioxide 29.4 Anion Gap 9 BUN 14 Creatinine 0.9 Estim Creat Clear Calc 45.6 L eGFR > 60 BUN/Creatinine Ratio 16 Glucose 91 Calculated Osmolality 285 Calcium 8.2 L Corrected Calcium 8.8 Phosphorus 3.3 Magnesium 1.9 Total Bilirubin 0.5 AST 26 ALT 22 Alkaline Phosphatase 39 L Total Protein 5.1 L Albumin 3.3 L Globulin 1.8 L Albumin/Globulin Ratio 1.8 ABG Interpretation ABG results: 08/31/24 19:48 ABG pH 7.45 ABG pCO2 46 ABG pO2 63 L ABG HCO3 32 H ABG O2 Saturation 93 ABG Base Excess 7 H Quality Measures Quality Measures none Advance care planning discussed with:: patient Assessment & Plan Assessment Current Active Medications: Generic Name Dose Route Start Last Admin Trade Name Freq PRN Reason Stop Dose Admin Acetaminophen 650 mg 08/31/24 22:13 09/04/24 10:14 Acetaminophen 325 Mg Tablet PO 09/30/24 22:12 650 mg Q6H PRN Administration PAIN SCALE 1-3 (mild Amlodipine Besylate 5 mg 09/02/24 09:00 09/04/24 09:44 Amlodipine Besylate 5 Mg Tablet PO 10/02/24 08:59 5 mg QDAY VESTA Administration Atorvastatin Calcium 20 mg 09/01/24 21:00 09/03/24 21:11 Atorvastatin Calcium 20 Mg Tablet PO 10/01/24 20:59 20 mg HS VESTA Administration Dextrose 25 ml 09/01/24 09:11 Dextrose 50%-Water Inj 50 Ml Syringe IV 10/01/24 09:10 Q15MIN PRN BG 50-70 responsive npo pt Dextrose 50 ml 09/01/24 09:11 Dextrose 50%-Water Inj 50 Ml Syringe IV 10/01/24 09:10 Q15MIN PRN BG <50 OR BG <70 & pt unresponsive Glucagon 1 mg 09/01/24 09:11 Glucagon Inj 1 Mg Vial IM Q15MIN PRN BG <70, and no IV access Heparin Sodium (Porcine) 5,000 unit 09/02/24 09:00 09/04/24 09:43 Heparin Sod Inj 5000 Unit/Ml Vial SC 09/16/24 08:59 5,000 unit Q12HR VESTA Administration Piperacillin/Tazobactam/Dextrose 3.375 gm in 50 mls @ 12.5 mls/hr 09/02/24 22:00 09/04/24 05:53 Zosyn IV 09/09/24 21:59 12.5 mls/hr Q8HR VESTA Administration Doxycycline Hyclate 100 mg/ 100 mls @ 100 mls/hr 09/02/24 11:00 09/03/24 09:11 Sodium Chloride IV 09/09/24 10:59 100 mls/hr BID VESTA Administration Insulin Human Lispro 0 unit 09/01/24 11:30 09/04/24 11:48 Insulin Lispro (Admelog) 1 Unit/0.01 Ml Unit SC 10/01/24 11:29 2 unit ACHS VESTA Administration Protocol Ketorolac Tromethamine 15 mg 09/02/24 14:37 09/03/24 21:37 Ketorolac Inj 30 Mg/Ml Vial IVP 09/07/24 14:36 15 mg Q6HR PRN Administration PAIN SCALE 4-6 (Moderate Levothyroxine Sodium 50 mcg 09/01/24 06:00 09/04/24 05:53 Levothyroxine Sodium 25 Mcg Tablet PO 10/01/24 05:59 50 mcg ACBR VESTA Administration Melatonin 3 mg 09/04/24 21:00 Melatonin 3 Mg Tablet PO 10/04/24 20:59 HS VESTA Morphine Sulfate 2 mg 09/01/24 15:42 09/02/24 09:04 Morphine Sulf Inj 10 Mg/Ml Vial IVP 09/06/24 15:37 2 mg Q4HR PRN Administration BREAKTHROUGH PAIN (SEVERE) Ondansetron HCl 4 mg 08/31/24 22:13 Ondansetron Inj 2 Mg/Ml Inj 2 Ml IVP 09/30/24 22:12 Q6H PRN NAUSEA OR VOMITING Protocol Pantoprazole Sodium 20 mg 09/02/24 09:00 09/04/24 09:44 Pantoprazole 20 Mg Tablet PO 10/02/24 08:59 20 mg QDAY VESTA Administration Sennosides 1 tab 08/31/24 22:13 Senna Tablet PO 09/30/24 22:12 QDAY PRN constipation Protocol Plan Radha Nance is a 78-year-old female with a PMH of hypertension, diabetes, hypothyroidism, hyperlipidemia, and osteoarthritis who presented on 09/01 with worsening shortness of breath. Patient was admitted for the work-up and management of right exudative pleural effusion and IRA. #Acute Hypoxic Respiratory Failure, secondary to #Right pleural effusion, exudative #Status post thoracentesis 09/01 #Postprocedural pneumothorax - resolved #Right lung pneumonia #Incidental on CT 4 cm right parapelvic cyst Patient presented with increased work of breathing spO2 of 92%, required nasal cannula, patient does not use oxygen at home. Chest x-ray on admission showed large right pleural effusion. CTA showed large right pleural effusion with total atelectatsis of right lung, negative for pulmonary embolism. S/p thoracentesis 09/01 and sustained 10% pneumothorax s/p procedure. Drained almost 2L clear yellow fluid. Right chest tube placed to continue drainage. , WBC within normal limts, and Pleural WBC 5 vs less likely Auto-immune. Of note, CT A/P noted 4 cm right parapelvic cyst, on image review, mass appears to be on right kidney. Patient denies family history of cancer. Pleural Studies: pleural total protein 5.0, pleural LDH 96. Per Lights criteria, (serum total protein 7.2, serum LDH 232) effusion is exudative, Ig M negative. Per light criteria, fluid is exudate, possible malignancy given large lesion on kidney noted vs para-pneumonic in nature can note be ruled out but less likely as no fever noted, WBC within normal limits. Repeat CT chest 09/03 shows diffuse right sided pneumonia, however CXR shows resolved PNA. Plan: -Per electronic engraver, discontinue chest tube suction and monitor drainage overnight -If drainage <100mL, clamp chest tube and take CXR 6 hours after clamping -Continue empiric Zosyn for 7 day course (09/02/2024--) -Continue to monitor until chest output is <50cc, clamp then xray -Pending body fluid culture w/ analysis and Gram stain, cytology, EMILY w/ reflex, IgG cocci -Strict I's & O's -Daily weight -Aspiration precautions, elevate head of bed elevation -Talent Acquisition Consultant Dr. Nicolas consulted for chest tube management -Consider outpatient work up for renal cyst #New Diabetes Mellitus type II, non insulin Dependent Initially diagnosed as pre-diabetic, now new diagnosis of diabetes melliitus with A1c (09/01) 7.5. Plan: -upon discharge, require Metformin - Start patient on insulin regimen -Carb consistent low diet -Diabetes education #Hx of Hypothyroidism Patient takes PO levothyroxine 88 mcg at home. On admission, TSH low at 0.20, free T4 high at 2.04, likely home dose is actually too high, will decrease inpatient and on discharge. - Continue PO levothyroxine 50 mcg #Hypertension Home medications include amlodipine 5 mg daily and Telmisartan- Hydrochlorothiazide 2 tablets daily. Plan: -Continue Amlodipine 10 mg daily -hold home dose Telmisartan-HCTZ -if need need be add Losartan #Hyperlipidemia Home medication includes atorvastatin 20 mg nightly. Lipid Panel 09/01: triglycerides 134, total cholesterol 187, LDL 111, HDL 49. ASCVD: Not applicable given age >75 years of age. Plan ? Continue home dose atorvastatin 20 mg HS, consider increasing for Atorvastatin 40 mg HS upon discharge. #Elevated troponin - resolved #IRA - resolved Health Maintenance Disposition: Awaiting pleural cultures and cytology, chest tube management. DVT prophylaxis: Heparin GI prophylaxis: None Diet: Cardiac CODE STATUS: FULL Patient plan of care was discussed with the resident, Dr. King, and attending physician, Dr. Bo. Liss Viera, PGY-1 - The patient's plan was discussed with attending Dr. Betzy King MD PGY2 Internal Medicine
[2024-09-04] MEDS: KETOROLAC INJ 30 MG/ML VIAL 15 MG IVP (14:01)
[2024-09-04 14:50] LABS: Cocci Serology, IgM Negative (Negative)
--- NOTE | 2024-09-04 15:00 | PC.NURSE ---
DR. JOHANSEN VERBAL ORDER TO TURN OFF SUCTION TO CHEST TUBE, NOT TO CLAM IT, AND ALEX LAST DRAINAGE LINE. ORDER RECEIVED, READ BACK, AND CARRIED OUT.
--- NOTE | 2024-09-04 15:26 | PC.SS ---
Rounding note: Dr. Nicolas recommendations regarding chest tube are pending. Pleural cultures also pending. Discharge plan: home.
--- NOTE | 2024-09-04 16:20 | PC.NURSE ---
PATIENT REPORTS PALPITATIONS, HX OF ANXIETY, NO CHEST PAIN, HEAD ACHE OR OTHER COMPLAINS. DR. JOHANSEN MADE AWARE DR TO PUT IN ORDERS FOR EKG, CHEST X-RAY, AND MEDICATION.
--- NOTE | 2024-09-04 16:38 | EKG_ITS ---
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
[2024-09-04] MEDS: MELATONIN 3 MG TABLET PO (20:58)
[2024-09-04] MEDS: ATORVASTATIN CALCIUM 20 MG TABLET PO (20:58)
[2024-09-05] VITALS (8 sets, daily range): BP systolic 120–170; BP diastolic 67–88; PULSE 62–89; RESP 16–21; TEMP 36.1–36.9; O2SAT 94–97
[2024-09-05] MEDS: PIPER/TAZO 3.375 GM PREMIX 3.375 GM/50 ML BAG IV ×3 (05:06→21:33)
[2024-09-05] MEDS: LEVOTHYROXINE SODIUM 25 MCG TABLET 50 MCG PO (05:06)
--- NOTE | 2024-09-05 06:00 | XR_ITS ---
Examination: AP chest single view Technique one AP portable upright chest single view Date and time: September 05, 2024, 0549 hours Comparison September 03, 2024 INDICATIONS: Post chest tube placement FINDINGS: Right chest tube satisfactory position Lungs are well-expanded No significant pleural disease Normal heart size IMPRESSION: Right chest tube satisfactory position.. Full expansion of both lungs
[2024-09-05 06:06] LABS: Basophils # (Auto) 0.1 Thou/mm3 (0.0-0.2); Basophils % (Auto) 1 % (0-2.5); Eosinophils # (Auto) 0.4 Thou/mm3 (0.0-0.5); Eosinophils % (Auto) 7 % (0-10); Hematocrit 42.3 % (36.0-46.0); Hemoglobin 14.8 g/dL (12.0-16.0); Immature Granulocytes Auto 0.01 Thou/mm3 (0.00-0.00); Lymphocytes # (Auto) 2.4 Thou/mm3 (1.0-4.8); Lymphocytes % (Auto) 40 % (10-50); Mean Corpuscular HGB Conc 35.0 g/dl (31.0-37.0); Mean Corpuscular Hemoglobin 30.6 pg (25.0-35.0); Mean Corpuscular Volume 88 fL (80-100); Monocytes # (Auto) 0.4 Thou/mm3 (0.0-0.8); Monocytes % (Auto) 7 % (0-12); Neutrophils # (Auto) 2.7 Thou/mm3 (1.8-7.7); Neutrophils % (Auto) 45 % (37-80); Nucleated Red Blood Cell # 0.00 Thou/mm3 (0.00-0.00); Nucleated Red Blood Cell % 0 /100 WBC (0); Platelet Count 185 Thou/mm3 (140-440); RDW Standard Deviation 38.7 fL (36.4-46.3); Red Blood Count 4.83 Miln/mm3 (4.00-5.20); White Blood Count 6.0 Thou/mm3 (3.6-11.0)
[2024-09-05 06:39] LABS: Alanine Aminotransferase 20 U/L (10-49); Albumin, Serum 4.0 gm/dL (3.4-4.8); Albumin/Globulin Ratio 1.9 (1.2-2.2); Alkaline Phosphatase 44 U/L (46-116); Anion Gap 9 (7-16); Aspartate Amino Transferase 28 U/L (0-34); BUN/Creatinine Ratio 8 Ratio (12-20); Bilirubin,Total 0.5 mg/dL (0.3-1.2); Blood Urea Nitrogen 7 mg/dL (9-23); Calcium 9.6 mg/dL (8.3-10.6); Calcium (Corrected) 9.6 mg/dL (8.5-10.1); Carbon Dioxide 27.5 mMol/L (20.0-31.0); Chloride 107 mMol/L (98-107); Creatinine (Component) 0.9 mg/dL (0.6-1.3); Estimated Creatinine Clearance 47.7 mL/min (>60); Globulin 2.1 gm/dL (2.3-3.5); Glucose 89 mg/dL (74-106); Magnesium 2.0 mg/dL (1.6-2.6); Osmolality,Calculated 281 (275-295); Phosphorous 3.3 mg/dL (2.4-5.1); Potassium 4.8 mMol/L (3.4-5.1); Sodium 143 mMol/L (136-145); Total Protein 6.1 gm/dL (5.7-8.2); eGFR > 60 See Note
[2024-09-05] MEDS: HEPARIN SOD INJ 5000 UNIT/ML VIAL SC ×2 (09:37→20:25)
[2024-09-05] MEDS: PANTOPRAZOLE 20 MG TABLET PO (09:38)
[2024-09-05] MEDS: INSULIN LISPRO (AdmeLOG) 1 UNIT/0.01 ML UNIT SC (11:23)
--- NOTE | 2024-09-05 11:40 | PD.PUCONS ---
HPI Pulmonology Consult Data of Consult Requesting Physician: Nirmal Bo MD Primary Care Provider: Placido Medina PA-C Consult Narrative History of present illness: Patient is 78-year-old female with past medical history of hypertension, hyperlipidemia, and diabetes who presented with 3 weeks of worsening shortness of breath. Noted worsening dyspnea in the past 3 months but more of a progressive decline in the prior weeks. Patient found on admission to have a large right pleural effusion with atelectasis of the right lung. Patient also with probable OSBORN based on imaging. Patient underwent thoracentesis complicated by presence of pneumothorax requiring chest tube placement. Patient denies any acute chest pain, no shortness of breath, remains off of oxygen. Patient accompanied by her son and has been placed on suction for the previous days. Patient with continued high output. Follow-up imaging showed complete reexpansion of the lung with evacuation of pneumothorax. Studies of fluid analysis consistent with exudative process. Ongoing evaluation for cytology is pending. Pulmonology consulted for help with management of chest tube. cc:: cc: Nirmal Bo MD Review of Systems Review of Systems Narrative Review of Systems: Per review of system was completed with significant findings included in HPI above Past Medical History Past Medical History Comments PMH COMMENT: Past medical history/past surgical history, family history, social history nonpertinent acute phase. Meds Home Medications and Allergies Home Medications ?Medication ?Instructions ?Recorded ?Confirmed ?Type amlodipine 10 mg tablet 5 mg PO QDAY 09/01/24 09/01/24 History atorvastatin 20 mg tablet 20 mg PO HS 09/01/24 09/01/24 History bisoprolol fumarate 5 mg tablet 2.5 mg PO DAILY 09/01/24 09/01/24 History Allergies Allergy/AdvReac Type Severity Reaction Status Date / Time No Known Allergies Allergy Verified 08/31/24 18:57 Exam Vital Signs Temp Pulse Resp BP Pulse Ox O2 Del Method O2 Flow Rate 97.0 F 75 20 143/71 H 95 Nasal Cannula 2 09/05/24 07:42 09/05/24 09:38 09/05/24 07:42 09/05/24 09:38 09/05/24 07:42 09/05/24 07:42 09/05/24 07:42 Narrative Exam GEN: NAD, AAOx3 HEENT: MMM, EOMI NECK: No JVD CVS: S1/S2+ RRR PULM: Normal adventitious breath sounds bilaterally, chest tube in place, yellow/ straw colored output- 290 in last 24 hours ABD: soft, NT, ND, BS+ EXT: no clubbing/ cyanosis, no peripheral edema NEURO: Nonfocal on gross exam PSYCH: Appropriate mood/ affcet Physical Exam Completion Physical Exam Complete?: Yes Results - Rotating Equipment Engineer Labs 09/06/24 05:05 09/06/24 05:05 Labs: Short CBC 09/05/24 Range/Units 05:00 WBC 6.0 (3.6-11.0) Thou/mm3 Hgb 14.8 (12.0-16.0) g/dL Hct 42.3 (36.0-46.0) % Plt Count 185 (140-440) Thou/mm3 BMP 09/05/24 05:00 Sodium 143 Potassium 4.8 Chloride 107 Carbon Dioxide 27.5 BUN 7 L Creatinine 0.9 Glucose 89 Calcium 9.6 Liver Function 09/05/24 Range/Units 05:00 Total Bilirubin 0.5 (0.3-1.2) mg/dL AST 28 (0-34) U/L ALT 20 (10-49) U/L Alkaline Phosphatase 44 L (46-116) U/L Albumin 4.0 D (3.4-4.8) gm/dL ABG Interpretation ABG results: 08/31/24 19:48 ABG pH 7.45 ABG pCO2 46 ABG pO2 63 L ABG HCO3 32 H ABG O2 Saturation 93 ABG Base Excess 7 H Assessment & Plan Additional Assessment Additional Assessment: Right pleural effusion Postprocedural pneumothorax Additional Plan Additional Plan: Patient stable off oxygen There is no significant air leak on my evaluation at bedside Exudative effusion by lights criteria No evidence of infection/parapneumonic/empyema Follow-up cytology Chest tube transition off of suction/placed on waterseal Expected output will reduce noted suction has been removed, should output remain less than 200 cc in 24 hours in the morning, will perform clamp trial for 46 hours with follow-up serial imaging to ensure no reexpansion of pneumothorax prior to appropriate discontinuation. I will defer to residents for physical removal of chest tube remain available in case any assistance is needed, will confer with house staff before they remove it Thank you for allowing me to participate in the care of this patient Provider Notation Provider Notation: Although this document has been carefully reviewed, there may still be some phonetic and other typographical errors. These errors are purely grammatical due to imperfections in the software program and should not be construed in any way to compromise the substance of the patient's medical care during this visit. Thank you for the opportunity and privilege in assisting you with this patient's care and management.
--- NOTE | 2024-09-05 14:11 | PC.NURSE ---
Chest tube has been clamped. Doctors will remove chest tube later on this afternoon. Patient will continue on antibiotics possible DC tomorrow.
--- NOTE | 2024-09-05 14:30 | XR_ITS ---
Examination: AP chest single view Technique one AP portable upright chest single view Date and time: September 05, 2024 0903 hours Comparison September 05, 2024 0549 hours INDICATIONS: Chest tube clamped FINDINGS: Right chest tube satisfactory position Full expansion right lung Normal heart size IMPRESSION: Full expansion right lung
--- NOTE | 2024-09-05 14:34 | PC.SS ---
Rounding note: patient continues receiving IV antibiotics. Possible d/c tomorrow. The d/c plan is to return home.
--- NOTE | 2024-09-05 18:37 | PD.RESPRO ---
Documentation for date of: 09/05/24 Subjective Subjective Interval history: No overnight events. Patient examined at bedside. Mild discomfort at side of chest tube insertion. Pain management on board. No chlls no pyrexia. Patient denied shortness of breath, saturating well on 1 liter nasal cannula. Suction off over night. Approximately 100 cc overnight. Cytology, No malignancy. Continue IV antibiotics. Pending Pleural Culture. Plan to discharge in the next 24 hours. Chest tube clamped. No output. Now s/p chest tube removal. Denied shortness of breath after chest tube removal. If patient develops symptoms of shortness of breath overnight-please repeat chest x-ray and ABG. Exam Vital Signs Temp Pulse Resp BP Pulse Ox O2 Del Method O2 Flow Rate 97.1 F 83 21 H 134/67 H 95 Nasal Cannula 2 09/05/24 16:00 09/05/24 16:00 09/05/24 16:00 09/05/24 16:00 09/05/24 16:00 09/05/24 16:00 09/05/24 16:00 Narrative Exam General Appearance: Alert & Oriented X3, well-nourished female who is lying in bed in no acute distress HEENT: Skull symmetrical and atraumatic. Conjunctivae pin and moist. Pupils equal, round, reactive to light and accommodation (PERRL). External ear without lesion or discharge. Straight, nares patient, mucosa pink, no discharge. No thyroid nodule appreciated. No cervical lymphadenopathy. Cardio: Normal Rate and Rhythm with S1 and S2 heart sounds. No murmurs or extra heart sounds auscultated. No bruits on carotid auscultation. No peripheral edema or cyanosis. Lungs: Symmetric with good expansion. Chest and back non-tender. Breath sounds vesicular without crackles, wheezing or rhonchi Abdomen: Non-tender, Non-distended, Normal Reactive Bowel Sounds Neuro: Alert, cooperative, oriented to person, place, and time. Speech clear. CN grossly intact. Upper motor strength 5/5 and Lower motor strength 5/5. Sensation intact. Objective Labs 09/06/24 05:05 09/06/24 05:05 Labs: Laboratory Results - last 24 hr 09/05/24 05:00 WBC 6.0 RBC 4.83 Hgb 14.8 Hct 42.3 MCV 88 MCH 30.6 MCHC 35.0 RDW Std Deviation 38.7 Plt Count 185 Neut % (Auto) 45 Lymph % (Auto) 40 Ada % (Auto) 7 Eos % (Auto) 7 Baso % (Auto) 1 Neut # (Auto) 2.7 Lymph # (Auto) 2.4 Ada # (Auto) 0.4 Eos # (Auto) 0.4 Baso # (Auto) 0.1 Immature Gran # (Auto) 0.01 H Absolute Nucleated RBC 0.00 Immature Gran % 0 Nucleated RBC % 0 Sodium 143 Potassium 4.8 Chloride 107 Carbon Dioxide 27.5 Anion Gap 9 BUN 7 L Creatinine 0.9 Estim Creat Clear Calc 47.7 L eGFR > 60 BUN/Creatinine Ratio 8 L Glucose 89 Calculated Osmolality 281 Calcium 9.6 Corrected Calcium 9.6 Phosphorus 3.3 Magnesium 2.0 Total Bilirubin 0.5 AST 28 ALT 20 Alkaline Phosphatase 44 L Total Protein 6.1 Albumin 4.0 D Globulin 2.1 L Albumin/Globulin Ratio 1.9 ABG Interpretation ABG results: 08/31/24 19:48 ABG pH 7.45 ABG pCO2 46 ABG pO2 63 L ABG HCO3 32 H ABG O2 Saturation 93 ABG Base Excess 7 H Quality Measures Quality Measures none Advance care planning discussed with:: patient Assessment & Plan Assessment Current Active Medications: Generic Name Dose Route Start Last Admin Trade Name Freq PRN Reason Stop Dose Admin Acetaminophen 650 mg 08/31/24 22:13 09/04/24 10:14 Acetaminophen 325 Mg Tablet PO 09/30/24 22:12 650 mg Q6H PRN Administration PAIN SCALE 1-3 (mild Amlodipine Besylate 5 mg 09/02/24 09:00 09/05/24 09:38 Amlodipine Besylate 5 Mg Tablet PO 10/02/24 08:59 5 mg QDAY VESTA Administration Atorvastatin Calcium 20 mg 09/01/24 21:00 09/04/24 20:58 Atorvastatin Calcium 20 Mg Tablet PO 10/01/24 20:59 20 mg HS VESTA Administration Dextrose 25 ml 09/01/24 09:11 Dextrose 50%-Water Inj 50 Ml Syringe IV 10/01/24 09:10 Q15MIN PRN BG 50-70 responsive npo pt Dextrose 50 ml 09/01/24 09:11 Dextrose 50%-Water Inj 50 Ml Syringe IV 10/01/24 09:10 Q15MIN PRN BG <50 OR BG <70 & pt unresponsive Glucagon 1 mg 09/01/24 09:11 Glucagon Inj 1 Mg Vial IM Q15MIN PRN BG <70, and no IV access Heparin Sodium (Porcine) 5,000 unit 09/02/24 09:00 09/05/24 09:37 Heparin Sod Inj 5000 Unit/Ml Vial SC 09/16/24 08:59 5,000 unit Q12HR VESTA Administration Hydroxyzine HCl 25 mg 09/04/24 16:45 09/04/24 17:54 Hydroxyzine Hcl 25 Mg Tablet PO 10/04/24 16:44 25 mg HS VESTA Administration Piperacillin/Tazobactam/Dextrose 3.375 gm in 50 mls @ 12.5 mls/hr 09/02/24 22:00 09/05/24 13:01 Zosyn IV 09/09/24 21:59 12.5 mls/hr Q8HR VESTA Administration Insulin Human Lispro 0 unit 09/01/24 11:30 09/05/24 11:23 Insulin Lispro (Admelog) 1 Unit/0.01 Ml Unit SC 10/01/24 11:29 2 unit ACHS VESTA Administration Protocol Ketorolac Tromethamine 15 mg 09/02/24 14:37 09/04/24 14:01 Ketorolac Inj 30 Mg/Ml Vial IVP 09/07/24 14:36 15 mg Q6HR PRN Administration PAIN SCALE 4-6 (Moderate Levothyroxine Sodium 50 mcg 09/01/24 06:00 09/05/24 05:06 Levothyroxine Sodium 25 Mcg Tablet PO 10/01/24 05:59 50 mcg ACBR VESTA Administration Melatonin 3 mg 09/04/24 21:00 09/04/24 20:58 Melatonin 3 Mg Tablet PO 10/04/24 20:59 3 mg HS VESTA Administration Morphine Sulfate 2 mg 09/05/24 09:09 Morphine Sulf Inj 10 Mg/Ml Vial IVP 09/06/24 15:37 Q4HR PRN PAIN SCALE 7-10 (Severe Ondansetron HCl 4 mg 08/31/24 22:13 Ondansetron Inj 2 Mg/Ml Inj 2 Ml IVP 09/30/24 22:12 Q6H PRN NAUSEA OR VOMITING Protocol Pantoprazole Sodium 20 mg 09/02/24 09:00 09/05/24 09:38 Pantoprazole 20 Mg Tablet PO 10/02/24 08:59 20 mg QDAY VESTA Administration Sennosides 1 tab 08/31/24 22:13 Senna Tablet PO 09/30/24 22:12 QDAY PRN constipation Protocol Plan Radha Nance is a 78-year-old female with a PMH of hypertension, diabetes, hypothyroidism, hyperlipidemia, and osteoarthritis who presented on 09/01 with worsening shortness of breath. Patient was admitted for the work-up and management of right exudative pleural effusion and IRA. #Acute Hypoxic Respiratory Failure, secondary to right pleural Exudative Effusion, improved. #Right pleural effusion, Exudative, #Status post thoracentesis 09/01 #S/p Chest tube removal 09/05/2024 #Postprocedural pneumothorax - resolved #Right lung pneumonia, CAP Patient presented with increased work of breathing spO2 of 92%, required nasal cannula, patient does not use oxygen at home. Chest x-ray on admission showed large right pleural effusion. CTA showed large right pleural effusion with total atelectatsis of right lung, negative for pulmonary embolism. S/p thoracentesis 09/01 and sustained 10% pneumothorax s/p procedure. Drained almost 2L clear yellow fluid. Right chest tube placed to continue drainage. , WBC within normal limts, and Pleural WBC 5 vs less likely Auto-immune. Of note, CT A/P noted 4 cm right parapelvic cyst, on image review, mass appears to be on right kidney. Patient denies family history of cancer. Pleural Studies: pleural total protein 5.0, pleural LDH 96. Per Lights criteria, (serum total protein 7.2, serum LDH 232) effusion is exudative, Ig M negative. Per light criteria, fluid is exudate, possible malignancy given large lesion on kidney noted vs para-pneumonic in nature can note be ruled out but less likely as no fever noted, WBC within normal limits. Repeat CT chest 09/03 shows diffuse right sided pneumonia, however CXR shows resolved PNA. Cytology: Negative for Malignancy Plan: -Continue empiric Zosyn for 7 day course (09/02/2024--) -Pending body fluid culture w/ analysis and Gram stain, EMILY w/ reflex, IgG cocci (negative X 1, repeat) -Strict I's & O's -Daily weight -Aspiration precautions, elevate head of bed elevation -Plaster And Stucco Worker Dr. Nicolas consulted for chest tube management #New Diabetes Mellitus type II, non insulin Dependent Initially diagnosed as pre-diabetic, now new diagnosis of diabetes melliitus with A1c (09/01) 7.5. Plan: -upon discharge, require Metformin - Start patient on insulin regimen -Carb consistent low diet -Diabetes education #Hx of Hypothyroidism Patient takes PO levothyroxine 88 mcg at home. On admission, TSH low at 0.20, free T4 high at 2.04, likely home dose is actually too high, will decrease inpatient and on discharge. - Continue PO levothyroxine 50 mcg #Hypertension Home medications include amlodipine 5 mg daily and Telmisartan-Hydrochlorothiazide 2 tablets daily. Plan: -Continue Amlodipine 10 mg daily -hold home dose Telmisartan-HCTZ -if need need be add Losartan #Hyperlipidemia Home medication includes atorvastatin 20 mg nightly. Lipid Panel 09/01: triglycerides 134, total cholesterol 187, LDL 111, HDL 49. ASCVD: Not applicable given age >75 years of age. Plan ? Atorvastatin 40 mg HS VESTA #Incidental on CT 4 cm right parapelvic cyst -Consider outpatient work up for renal cyst #Elevated troponin - resolved #IRA - resolved Health Maintenance Disposition: Awaiting pleural cultures and continue IV antibiotics, s/p chest tube removal this evening. DVT prophylaxis: compression device GI prophylaxis: None Diet: Cardiac-low carb consistent low CODE STATUS: FULL - The patient's plan was discussed with attending Dr. Sherley King MD PGY2 Internal Medicine Attending Provider Attestation/Addendum I have examined the patient, reviewed labs and imaging findings, discussed the case with the resident(s), and reviewed entered orders. I agree with the plan of care as outlined in this note, with these additional summaries/recommendations: Patient seen at bedside. No acute overnight events but patient continues to endorse poor sleep. Patient appears comfortable today and she denies any significant pain or shortness of breath. Chest x-ray this morning shows full expansion of both lungs. Case discussed with in-house pulmonology and we will remove chest tube today and monitor closely for any change in hemodynamics or return of pneumothorax. Patient has exudative effusion most likely secondary to infection. Pleural fluid Gram stain and culture still pending. Continue IV antibiotics. Follow-up results when available. Continue insulin sliding scale for diabetes mellitus type 2. A1c 7.5%. Continue home levothyroxine and antihypertensives. Patient advised we will need to await culture results before she can be safely discharged. Patient updated on the plan and agreement. All questions answered to satisfaction. Please see residents note for additional details and management. Dr. Sherley MD
--- NOTE | 2024-09-05 19:35 | XR_ITS ---
Examination: AP chest single view AP portable upright chest single view Date and time: September 05, 2024 1946 hours INDICATIONS: Leaking fluid after chest tube removal FINDINGS: Right chest tube has been removed Full expansion of both lungs Minimal right pleural fluid IMPRESSION: Minimal right pleural fluid
[2024-09-05] MEDS: MELATONIN 3 MG TABLET PO (20:25)
[2024-09-05] MEDS: ATORVASTATIN CALCIUM 20 MG TABLET 40 MG PO (20:25)
[2024-09-06] VITALS: BP 126/70; PULSE 60; PULSE 82; RESP 17; TEMP 36.4; O2SAT 96
[2024-09-06 04:00] VITALS: BP 131/71; PULSE 62; PULSE 72; RESP 17; TEMP 36.5; O2SAT 94
[2024-09-06] MEDS: PIPER/TAZO 3.375 GM PREMIX 3.375 GM/50 ML BAG IV (05:12)
[2024-09-06] MEDS: LEVOTHYROXINE SODIUM 25 MCG TABLET 50 MCG PO (05:12)
[2024-09-06 06:24] LABS: Basophils # (Auto) 0.1 Thou/mm3 (0.0-0.2); Basophils % (Auto) 2 % (0-2.5); Eosinophils # (Auto) 0.4 Thou/mm3 (0.0-0.5); Eosinophils % (Auto) 7 % (0-10); Hematocrit 41.1 % (36.0-46.0); Hemoglobin 14.3 g/dL (12.0-16.0); Immature Granulocytes Auto 0.01 Thou/mm3 (0.00-0.00); Lymphocytes # (Auto) 2.0 Thou/mm3 (1.0-4.8); Lymphocytes % (Auto) 32 % (10-50); Mean Corpuscular HGB Conc 34.8 g/dl (31.0-37.0); Mean Corpuscular Hemoglobin 31.1 pg (25.0-35.0); Mean Corpuscular Volume 89 fL (80-100); Monocytes # (Auto) 0.4 Thou/mm3 (0.0-0.8); Monocytes % (Auto) 7 % (0-12); Neutrophils # (Auto) 3.3 Thou/mm3 (1.8-7.7); Neutrophils % (Auto) 53 % (37-80); Nucleated Red Blood Cell # 0.00 Thou/mm3 (0.00-0.00); Nucleated Red Blood Cell % 0 /100 WBC (0); Platelet Count 215 Thou/mm3 (140-440); RDW Standard Deviation 39.1 fL (36.4-46.3); Red Blood Count 4.60 Miln/mm3 (4.00-5.20); White Blood Count 6.2 Thou/mm3 (3.6-11.0)
[2024-09-06 06:38] LABS: Alanine Aminotransferase 49 U/L (10-49); Albumin, Serum 3.6 gm/dL (3.4-4.8); Albumin/Globulin Ratio 1.4 (1.2-2.2); Alkaline Phosphatase 40 U/L (46-116); Anion Gap 9 (7-16); Aspartate Amino Transferase 61 U/L (0-34); BUN/Creatinine Ratio 9 Ratio (12-20); Bilirubin,Total 0.5 mg/dL (0.3-1.2); Blood Urea Nitrogen 8 mg/dL (9-23); Calcium 8.8 mg/dL (8.3-10.6); Calcium (Corrected) 9.1 mg/dL (8.5-10.1); Carbon Dioxide 30.9 mMol/L (20.0-31.0); Chloride 104 mMol/L (98-107); Creatinine (Component) 0.9 mg/dL (0.6-1.3); Estimated Creatinine Clearance 47.7 mL/min (>60); Globulin 2.5 gm/dL (2.3-3.5); Glucose 84 mg/dL (74-106); Magnesium 1.8 mg/dL (1.6-2.6); Osmolality,Calculated 284 (275-295); Phosphorous 3.7 mg/dL (2.4-5.1); Potassium 4.8 mMol/L (3.4-5.1); Sodium 144 mMol/L (136-145); Total Protein 6.1 gm/dL (5.7-8.2); eGFR > 60 See Note
[2024-09-06 08:00] VITALS: BP 123/69; PULSE 61; PULSE 69; RESP 18; TEMP 36.2; O2SAT 92
--- NOTE | 2024-09-06 09:08 | PD.RESDS ---
Planned Discharge Date 09/06/24 DS: Providers Provider Date of admission: 08/31/24 22:13 Primary care physician: Placido Medina PA-C Admitting Provider: Kulwinder Marion MD Attending Provider on Admission: Nirmal Bo MD Consults: 09/04/24 11:44 Consult to Pulmonology Routine Comment: chest tube/pleural effusion/pneumothorax Consulting Provider: Andrés Nicolas I Attending Provider on DC: Rom Lepe MD Discharging Provider: RESIDENT Daron DS: Diagnosis Problem List Completed Was Problem List Reviewed/Reconciled?: Yes Hospital Course Hospital Course Hospital course: Summary: Patient is a 78-year-old female with a PMH of hypertension, diabetes, hypothyroidism, hyperlipidemia, and osteoarthritis who presented on 09/01 with worsening shortness of breath. Patient was admitted for the work-up and management of right exudative pleural effusion and IRA. ED Course: Vitals: BP 168/80 HR 79 RR 16 Temp 98.6 SpO2 92% on room air Labs: CBC was unremarkable. ABG showed low PO2 63, low HCO3 32, and high ABG base excess 7. Bicarb 31.1, creatinine 1.7, blood glucose 204, trop 0.052, TSH 0.20, free T4 2.04. UA unremarkable. Imaging: CTAP showed partial visualization of a large right pleural effusion and primary hepatocellular disease. Chest CTA showed large right pleural effusion with total atelectasis of the right lung but was negative for pulmonary artery emboli. Chest x-ray showed large right pleural effusion. EKG showed sinus rhythm with possible old anterior myocardial infarction of indeterminate age. Treatment: IV morphine sulfate 1 mg x 1, IV furosemide 40 mg x 1, and nitroglycerin paste x 1. Reason for hospitalization: Patient is a 78-year-old female with a PMH of hypertension, diabetes, hypothyroidism, hyperlipidemia, and osteoarthritis who presented on 09/01 with worsening shortness of breath. Patient was admitted for the work-up and management of right exudative pleural effusion found on CT chest and IRA. Effusion was drained via US guided thoracentesis, however patient sustained a 10% pneumothorax on repeat CXR and right chest tube was placed for continued drainage. Follow up CT chest showed right sided pneumonia so patient was treated with IV Zosyn starting 09/02. Chest tube placed on suction and continued to drain for 3 days, consulted meteorological observer Dr. Nicolas for chest tube management. Discontinued suction and removed chest tube prior to discharge. Of note, home dose Levothyroxine was decreased due to low TSH and elevated T4 indicating overtreatment of hypothyroidism. A1c 09/01 was 7.5 and started on insulin sliding scale, will discharge with Metformin. Patient did not complete antibiotic course so will discharge with 6 day supply of Augmentin to complete 10 day course. Cytology was negative for malignancy. Pleural fluid culture analysis is still pending; however patient can follow up results at [facility]. Of note, patient was found to have right renal cyst, which may also require follow up. Discharge Recommendations: -Please continue antibiotics and Augmentin and Doxycycline for 6 more days -Change in dose to Levothyroxine 50 mcg, please follow up with endocrinology to adjust your dose -Metformin 500 mg twice daily for diabetes, A1c 7.5% -STOP Telmisartan-Hydrochorothiazid as your blood pressure has been well controlled. -Please follow up with your primary care provider within one week of discharge -If your symptoms worsen,please seek immediate medical attention and return to your nearest emergency room -If you do not have a primary care provider, you may follow up at the [facility] at [address], [place] [address], Hospital Diagnoses: #Acute Hypoxic Respiratory Failure, secondary to right pleural Exudative Effusion, improved. #Right pleural effusion, Exudative, #Status post thoracentesis 09/01 #S/p Chest tube removal 09/05/2024 #Postprocedural pneumothorax - resolved #Right lung pneumonia, CAP #New Diabetes Mellitus type II, non insulin Dependent #Hx of Hypothyroidism #Hx Hypertension #Hyperlipidemia #Incidental on CT 4 cm right parapelvic cyst #Elevated troponin - resolved #IRA - resolved Disposition: Safe discharge to home. Patient plan of care was discussed with the resident, Dr. King, and attending physician, Dr. Lepe. Liss Viera, PGY-1 - The patient's plan was discussed with attending Dr. Sherley King MD PGY2 Internal Medicine Time Spent with Patient Time attestation: Total time spent providing and/or coordinating discharge services: at least 30 minutes of care coordination Time spent: Greater than 30 minutes Exam Vital Signs Temp Pulse Resp BP Pulse Ox O2 Del Method O2 Flow Rate 97.1 F 69 18 123/69 92 L Room Air 2 09/06/24 08:00 09/06/24 08:00 09/06/24 08:00 09/06/24 08:00 09/06/24 08:00 09/06/24 08:00 09/05/24 16:00 Narrative Exam Physical Exam General: Awake and in no acute distress. Conversational and non-toxic appearing. HEENT: Normocephalic, atraumatic, mucous membranes moist. Heart: Regular rate and rhythm, normal S1 and S2, no murmurs. Lungs: Decreased breath sounds in right lower lobe. Clear to auscultation all other lobes. Abdomen: Soft, nondistended, nontender, positive bowel sounds. Right chest tube site, tube removed, No guarding or rebound tenderness. Neurologic: Alert and oriented x3, no gross neurological deficit, and patient able to move all 4 extremities. Extremities: No edema. Skin: No rash or ecchymoses. Discharge Plan Plan Patient Disposition: HOME (Self Care) Patient condition on transfer: Stable Care Plan Goals: Instructions: -Please continue antibiotics and Augmentin and Doxycycline for 6 more days -Change in dose to Levothyroxine 50 mcg, please follow up with endocrinology to adjust your dose -Metformin 500 mg twice daily for diabetes, A1c 7.5% -STOP Telmisartan-Hydrochorothiazid as your blood pressure has been well controlled. -Please follow up with your primary care provider within one week of discharge -If your symptoms worsen,please seek immediate medical attention and return to your nearest emergency room -If you do not have a primary care provider, you may follow up at the [facility] at [address], [place] [address], Prescriptions/Referrals Prescriptions/Med Rec: New metformin 500 mg tablet 500 mg PO BID 30 Days Qty: 60 1RF amoxicillin-pot clavulanate [Augmentin] 500-125 mg tablet 1 tab PO TID 6 Days Qty: 18 0RF doxycycline hyclate 100 mg capsule 100 mg PO BID 6 Days Qty: 12 0RF levothyroxine 50 mcg capsule 50 mcg PO QDAY 30 Days Qty: 30 0RF Continued bisoprolol fumarate 5 mg tablet 2.5 mg PO DAILY amlodipine 10 mg tablet 5 mg PO QDAY atorvastatin 20 mg tablet 20 mg PO HS Discontinued levothyroxine 88 mcg tablet 88 mcg PO DAILY telmisartan-hydrochlorothiazid 80-12.5 mg tablet 2 tab PO DAILY Referrals: Placido Medina PA-C [Primary Care Provider] - Patient/Caregiver Discharge Instructions Education Materials: Thoracentesis Dc, ED Pneumonia (Adult) Print Language: German Stand Alone Forms: Tonie Award Info., Patient Portal Info Letter Discharge Order Discharge Orders: Discharge (Routine); Ordered 09/06/24 Ordered By: Era King Quality Discharge Quality Measures VTE prophylaxis MD Attestestation MD Attestation I have examined the patient, reviewed labs and imaging findings, discussed the case with the resident(s), and reviewed entered orders. I agree with the plan of care as outlined in this note. Time Spent: [address] Sherley MD
[2024-09-06 09:13] VITALS: BP 123/69; PULSE 69
[2024-09-06] MEDS: PANTOPRAZOLE 20 MG TABLET PO (09:13)
[2024-09-06] MEDS: HEPARIN SOD INJ 5000 UNIT/ML VIAL SC (09:14)
--- NOTE | 2024-09-06 10:13 | PC.SS ---
SS follow up: met with patient to confirm the d/c plan. Patient to return home, family to transport home. No needs at this time.
--- NOTE | 2024-09-06 11:32 | XR_ITS ---
Examination: AP chest single view TECHNIQUE: AP portable semiupright chest single view Date and time: September 07, 1999 2537 hours INDICATIONS: Chest pain with shortness of breath today FINDINGS: Normal heart size No lobar pneumonia or pulmonary edema. Moderate osteopenia IMPRESSION: No lobar pneumonia or pulmonary edema
[2024-09-06 11:44] LABS: Cocci Serology, IgG Negative (Negative)
[2024-09-06 12:00] VITALS: BP 132/79; PULSE 78; PULSE 87; RESP 18; TEMP 36.6; O2SAT 94
[2024-09-06] MEDS: INSULIN LISPRO (AdmeLOG) 1 UNIT/0.01 ML UNIT SC (12:04)
[2024-09-08 06:27] LABS: ANA Pattern NUCLEAR, NUCLEOLAR; ANA Screen, IFA POSITIVE (NEGATIVE); ANA Titer 1:320 titer
== END 2024-09-06 14:23 | disposition home or self-care (01) | DRG 186 ==
LOC: SERX 22:24 → SERHOLD 22:27 → S3SX 09-01
PROVIDERS: Student in an Organized Health Care Education/Training Program; Admitting Provider Student in an Organized Health Care Education/Training Program; Emergency Provider Emergency Medicine; PCP Physician Assistant; Visit Provider Internal Medicine
DX: J90 Pleural effusion, not elsewhere classified (principal); I26.99 Other pulmonary embolism without acute cor pulmonale; J18.9 Pneumonia, unspecified organism; J96.01 Acute respiratory failure with hypoxia; I13.0 Hypertensive heart and chronic kidney disease with heart failure and stage 1 through stage 4 chronic kidney disease, or unspecified chronic kidney disease; J98.11 Atelectasis; N17.9 Acute kidney failure, unspecified; I87.1 Compression of vein; I31.1 Chronic constrictive pericarditis; J95.811 Postprocedural pneumothorax; E03.9 Hypothyroidism, unspecified; E78.5 Hyperlipidemia, unspecified; M19.90 Unspecified osteoarthritis, unspecified site; E11.22 Type 2 diabetes mellitus with diabetic chronic kidney disease; E11.65 Type 2 diabetes mellitus with hyperglycemia; E88.09 Other disorders of plasma-protein metabolism, not elsewhere classified; F41.9 Anxiety disorder, unspecified; I50.9 Heart failure, unspecified; N18.9 Chronic kidney disease, unspecified; N28.1 Cyst of kidney, acquired; N64.89 Other specified disorders of breast; Z79.4 Long term (current) use of insulin; Z79.84 Long term (current) use of oral hypoglycemic drugs; Z79.890 Hormone replacement therapy; Z79.899 Other long term (current) drug therapy
CPT/HCPCS: 36415; 36600; 71045; 71260; 71275; 74177; 80053; 80061; 81001; 82150; 82248; 82803; 82945; 83036; 83615; 83735; 83880; 84100; 84157; 84439; 84443; 84484; 85025; 85379; 85610; 85652; 85730; 86038; 86039; 86140; 86331; 86635; 87070; 87075; 87205; 87400; 87811; 89051; 93005; 93225; 93306; 94762; 96374; 96375; A4649; C1729; J1644; J1815; J1885; J1938; J2270; J2543; J3010; J3475; J3490; J7120; Q9967; A9270

== ENCOUNTER 2024-09-08 14:57 | Outpatient (AMB) | payer MEDICARE, MEDICAID, SELFPAY ==
[2024-09-08 16:04] VITALS: BP 129/70; PULSE 77; RESP 18; TEMP 37; O2SAT 92; BMI 27.2
--- NOTE | 2024-09-08 16:04 | PD.RESCLINIC ---
Vital Signs 09/08/24 16:04 Height 1.55 m Height Method Stated Weight 65.374 kg Weight Measurement Method Standing Scale BMI 27.2 BP 129/70 Blood Pressure Source Automatic Cuff Blood Pressure Location Right Upper Arm Position Sitting Respiration 18 Pulse 77 Pulse Source Monitor Temp 98.6 F Temp Source Temporal Artery Scan Pulse Oximetry (%) 92 L Oxygen Delivery Method Room Air Allergies/Meds Allergies & Medications Allergies No Known Allergies Allergy (Verified 09/08/24 16:05) Medication Reconciliation amlodipine 10 mg tablet 5 mg PO QDAY 09/01/24 [History Confirmed 09/08/24] atorvastatin 20 mg tablet 20 mg PO HS 09/01/24 [History Confirmed 09/08/24] bisoprolol fumarate 5 mg tablet 2.5 mg PO DAILY 09/01/24 [History Confirmed 09/08/24] levothyroxine 50 mcg capsule 50 mcg PO QDAY 1 month #30 caps 09/06/24 [Rx Confirmed 09/08/24] metformin 500 mg tablet 500 mg PO BID 1 month #60 tabs 09/06/24 [Rx Confirmed 09/08/24] MA Intake Visit Data Collection New Patient or Established: Established Patient (seen at [facility] within 3 years) Seen by Clinical Staff ONLY (RN/MA): No Pain Present Currently: No Pain scale:: 0 Pain Scale Used: Shin-Banegas/Numerical Backhoe Operator Required: No PCP or OBGYN visit in last 3 months: No Hx Now: No Do You Feel Safe at Home: Yes Authorities Contacted: N/A Smoking Status Smoking Status: Never smoker Immunization / Flu Flu Vaccine in the Last 12 Months: No Flu Vaccine Exclusion Criteria: No Exclusion Criteria Past Medical History Past Medical History CARDIAC: Positive Cardiac Disorders; Negative Congestive Heart Failure RESPIRATORY: Positive Asthma; Negative Chronic Obstructive Pulmonary Disease (COPD) GENITOURINARY: Negative Renal Disease ENDOCRINE: Negative Diabetes Mellitus Type 1 or Diabetes Mellitus Type 2 HEMATOLOGIC: Negative Sickle Cell Disease Social History SMOKING STATUS: Smoking status: Never smoker ALCOHOL: Alcohol Intake: Never HOUSING: Housing: House LIVES WITH: Lives With: Children Patient Portal Vishnu Social History Living Situation History Housing: House Tobacco History Smoking Status: Never smoker Alcohol History Alcohol Intake: Never Domestic Abuse History Do You Feel Safe at Home: Yes Review of Systems Report any current symptoms Only answer those that you have currently: Past Medical History Past Medical History Have you ever been diagnosed with any of the following: Cardiology Problems Congestive Heart Failure: No Respiratory Problems Chronic Obstructive Pulmonary Disease (COPD): No Asthma: Yes Genital/Urinary Problems Renal Disease: No Endocrine Problems Diabetes Mellitus Type 1: No Diabetes Mellitus Type 2: No Blood Problems Sickle Cell Disease: No History of Present Illness HPI Narrative Patient is a 78-year-old female with a past medical history of hypertension, hyperlipidemia, diabetes mellitus type 2 [id number] (recent diagnosis on hospital admission, previously prediabetic), hypothyroidism, and osteoarthritis. 09/08/2024: Patient is a hospital follow-up after recent hospital admission for acute hypoxic respiratory failure, noted CTA chest found large right pleural effusion with total atelectasis of right lung s/p thoracentesis with chest tube. Pleural cytology negative for malignancy. Exudative light's criteria, treated for pneumonia with antibiotics although no leukocytosis noted during inpatient. Follow up EMILY screen outpatient, noted EMILY POSITIVE. EMILY titer 1:320. EMILY Pattern noted to be nuclear. Patient completed antibiotic course. Patient deneid shortness of breath. Further autoimmune panel ordered via [facility]. Patient likely rachael require referral to bods developer if further work up is positive. During hospital admission, TSH level noted at 0.20 (L) and Free T4 2.04 (H). Given low TSH and elevated T4, home medication of levothyroxine decreased to Levothyroxine 50 mcg once daily before food. Repeat labs in 6 weeks. If not improved may require referral to licensed clinical psychologist and autoimmune work up for hypothyrodism. *Follow up on Autoimmune work up after positive EMILY and TSH/T4 levels after decreasing levothyroxine. Review of Systems Review of Systems Narrative Review of Systems: General appearance: NO weight change, NO fatigue, NO weakness, NO fever, NO chills, NO night sweats, No cough Skin: NO rash, NO itching, NO sores, NO moles HEENT: NO Trauma, NO nausea, NO vomiting, NO visual changes, NO blurry vision, NO double vision, NO tinnitus, NO vertigo, NO ear discharge, NO rhinorrhea, NO stuffiness, NO sneezing, NO allergy, NO epistaxis. NO Hoarseness, NO sore throat, NO swollen neck. Cardiac: NO Palpitations, NO dyspnea on exertion, NO orthopnea, NO paroxysmal nocturnal dyspnea, NO edema Respiratory: NO Shortness of Breath, NO Wheezing, NO Cough, NO Sputum, NO hemoptysis GI:NO appetite, NO nausea, NO vomiting, NO dysphagia, NO changes in bowel frequency, NO stool color, NO diarrhea, NO constipation, NO hemetemesis, NO hemorrhoids, NO melena, NO hematechezia, NO abdominal pain, NO jaundice Renal: NO frequency, NO hesitancy, NO urgency, NO hematuria, NO nocturia, NO incontinence MSK: NO muscle weakness, NO gout, NO arthritis, NO muscle stiffness Neuro: NO headaches, NO tremors, NO weakness, NO paralysis, NO seizures, NO loss of consciousness, NO numbness. Hem: NO anemia, NO easy bruising/bleeding, NO petechiae, NO purpura Endo: NO heat/cold intolerance, NO excessive sweating, NO polyuria, NO polydipsia, NO polyphagia, NO thyroid problems, NO diabetes Pysch: NO mood, NO anxiety, NO depression Objective/Exam Narrative Physical exam: General Appearance: Alert and Orientated x3, well-nourished female who is sitting on exam room Thorax/Lungs: Symmetrical with good expansion. Chest and back non-tender. Lungs resonant to percussion. Breath sounds vesicular without crackles, wheezes, or rhonchi Cardiovascular/Peripheral Vascular: No jugular venous distention noted. S1 and S2 heart sounds regular, no murmurs or extra heart sounds auscultated. No peripheral edema noted. Abdomen: Bowel sounds are active. No tenderness to deep or light palpation. Assessment & Plan Diagnosis / Problem List (1) Diabetes mellitus type 2, controlled, without complications: Status: Acute Assessment & Plan: Per patient history, previously pre-diabetic, but after recent hospital admission, A1c of 7.8% (08/2024). Patient was started on Metformin 500 mg PO BID. Plan: Continue Metformin 500 mg PO BID (2) Hyperlipidemia: Status: Acute Qualifiers: Hyperlipidemia type: mixed hyperlipidemia Qualified Code(s): E78.2 - Mixed hyperlipidemia Assessment & Plan: Patient has a past medical history of hyperlipidemia and previously on Atorvastatin. Lipid Panel (09/01/2024): Triglycerides 134, Cholesterol 187, LDL 111, HDL 49 Plan: Continue Atorvastatin 20 mg PO HS (3) Hypothyroidism: Status: Acute Qualifiers: Hypothyroidism type: unspecified Qualified Code(s): E03.9 - Hypothyroidism, unspecified Assessment & Plan: Patient has a past medical history of hypothyroidism and previously on Levothyroxine 88 mcg. On previous hospital admission low TSH of 0.20 and Free T4 of 2.04 (H) on 08/31/2024. Given finding Levothyroxine dose of 88 mgc-->decreased to 50 mcg. Plan: Continue Levothyroxine 50 mcg Patient will require follow up with new dose in 6-8 weeks repeat TSH and Free T4 levels (4) History of pleural effusion: Status: Acute Assessment & Plan: Patient was admitted in August 2024 for acute hypoxic respiratory failure, secondary to pleural effusion and required chest tube on admission. Cytology NEGATIVE for malignancy. Light's criteria noted for Exudative. EMILY positive w/ elevated titer of 1:320, and Nuclear pattern. 12 specific autoimmune labs ordered to confirm diagnosis. Plan: Please follow up with auto-immune specific labs through [facility] based on results, may require bods developer follow up. Plan - The patient's plan was discussed with attending Dr. Lisa King MD PGY2 Internal Medicine Advanced Care Planning Advance care planning discussed with:: patient and child Office Procedures [facility] Level of Care Nursing/Assessment Patient Status: Established Patient Nursing Assessment/Reassessment: Medication Reconciliation, Update PMH in EMR and Vital Signs Coordination of Care: Complex Care and Chronic Disease 1-5, Consent,records obtained, informed consent, Education Simp Pt/Fam, Lab and Imaging orders and Staff clarify orders Established Patient Charge Established Patient Point Assignment: 100 Established Patient Point Charge: EP Level 3 (80-115)
== END 2024-09-08 16:18 | disposition home or self-care (01) ==
LOC: HODAHC 14:57
PROVIDERS: PCP Physician Assistant; Referring Provider Physician Assistant; Supervising Provider Internal Medicine
DX: J96.01 Acute respiratory failure with hypoxia (principal); J90 Pleural effusion, not elsewhere classified; J98.11 Atelectasis; E11.9 Type 2 diabetes mellitus without complications; Z79.84 Long term (current) use of oral hypoglycemic drugs; E78.2 Mixed hyperlipidemia; E03.9 Hypothyroidism, unspecified; Z79.890 Hormone replacement therapy
CPT/HCPCS: 99213; G0463

== ENCOUNTER 2024-10-19 13:34 | Outpatient (AMB) | payer MEDICARE, MEDICAID, SELFPAY ==
[2024-10-19 14:01] VITALS: BP 164/82; PULSE 64; RESP 17; TEMP 36.3; O2SAT 94; BMI 28.0
--- NOTE | 2024-10-19 14:01 | PD.RESCLINIC ---
Vital Signs 10/19/24 14:01 Height 1.55 m Height Method Stated Weight 67.302 kg Weight Measurement Method Standing Scale BMI 28.0 BP 164/82 H Blood Pressure Source Automatic Cuff Blood Pressure Location Right Upper Arm Position Sitting Respiration 17 Pulse 64 Pulse Source Monitor Temp 97.3 F Temp Source Oral Pulse Oximetry (%) 94 L Oxygen Delivery Method Room Air Allergies/Meds Allergies & Medications Allergies No Known Allergies Allergy (Verified 10/19/24 14:02) Medication Reconciliation amlodipine 10 mg tablet 5 mg PO QDAY 09/01/24 [History Confirmed 10/19/24] atorvastatin 20 mg tablet 20 mg PO HS 09/01/24 [History Confirmed 10/19/24] bisoprolol fumarate 5 mg tablet 2.5 mg PO DAILY 09/01/24 [History Confirmed 10/19/24] metformin 500 mg tablet 500 mg PO BID 1 month #60 tabs 09/06/24 [Rx Confirmed 10/19/24] levothyroxine 75 mcg capsule 75 mcg PO QDAY 1 month #30 caps 10/19/24 [Rx] telmisartan 80 mg tablet 80 mg PO QDAY 1 month #30 tabs 10/19/24 [Rx] MA Intake Visit Data Collection New Patient or Established: Established Patient (seen at [facility] within 3 years) Seen by Clinical Staff ONLY (RN/MA): No Pain Present Currently: No Pain scale:: 0 PCP or OBGYN visit in last 3 months: Yes Do You Feel Safe at Home: Yes Smoking Status Smoking Status: Never smoker Immunization / Flu Flu Vaccine in the Last 12 Months: No Flu Vaccine Exclusion Criteria: No Exclusion Criteria Past Medical History Past Medical History CARDIAC: Positive Cardiac Disorders; Negative Congestive Heart Failure RESPIRATORY: Positive Asthma; Negative Chronic Obstructive Pulmonary Disease (COPD) GENITOURINARY: Negative Renal Disease ENDOCRINE: Negative Diabetes Mellitus Type 1 or Diabetes Mellitus Type 2 HEMATOLOGIC: Negative Sickle Cell Disease Social History SMOKING STATUS: Smoking status: Never smoker ALCOHOL: Alcohol Intake: Never HOUSING: Housing: House LIVES WITH: Lives With: Children Patient Portal Vishnu Social History Living Situation History Housing: House Tobacco History Smoking Status: Never smoker Alcohol History Alcohol Intake: Never Domestic Abuse History Do You Feel Safe at Home: Yes Review of Systems Report any current symptoms Only answer those that you have currently: Past Medical History Past Medical History Have you ever been diagnosed with any of the following: Cardiology Problems Congestive Heart Failure: No Respiratory Problems Chronic Obstructive Pulmonary Disease (COPD): No Asthma: Yes Genital/Urinary Problems Renal Disease: No Endocrine Problems Diabetes Mellitus Type 1: No Diabetes Mellitus Type 2: No Blood Problems Sickle Cell Disease: No History of Present Illness HPI Narrative Patient is a 78-year-old female with a past medical history of hypertension, hyperlipidemia, diabetes mellitus type 2 [id number] (recent diagnosis on hospital admission, previously prediabetic), hypothyroidism, and osteoarthritis. 10/19/2024: Patient followed up for autoimmune workup. 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 Patient's levothyroxine dose was lowered and the following is seen on laboratory results showing elevated TSH. Patient is asymptomatic and is not complaining of any concerning symptoms at this time. Patient also is presenting with elevated blood pressure and states that at home her blood pressures have been as high as systolic 170. Patient is telmisartan?hydrochlorothiazide was discontinued on hospital discharge. Explained to the patient that we will restart telmisartan. Patient also is following up with cardiology within the next couple weeks; however, told her and her daughter to ask about the bisoprolol as it is not indicated as first-line for hypertension. Patient otherwise denies having any concerning symptoms and will follow-up in 6 weeks with repeat TSH and T4. Objective/Exam Narrative Physical exam: Physical Exam: GENERAL: Awake, answering questions appropriately in Turkish, appears stated age HEENT: NC/AT. Moist mucosa. PERRLA/EOMI. CARDIO: Heart RRR, no obvious murmurs, no JVD. PULM: No coughing or visible SOB. Lungs CTA B/L. GI: Abdomen soft, NT/ND, +BS. SKIN/MSK/EXT: No wounds/discoloration/rashes/edema/amputations NEURO: Oriented x3, moves extremities x 4, no focal neurologic deficits Assessment & Plan Diagnosis / Problem List (1) Hypothyroidism: Status: Acute Qualifiers: Hypothyroidism type: unspecified Qualified Code(s): E03.9 - Hypothyroidism, unspecified Assessment & Plan: Patient has a past medical history of hypothyroidism and previously on Levothyroxine 88 mcg. On previous hospital admission low TSH of 0.20 and Free T4 of 2.04 (H) on 08/31/2024. Given finding Levothyroxine dose of 88 mgc-->decreased to 50 mcg. 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 being elevated Plan: Increase levothyroxine to 75 mcg Patient will require follow up with new dose in 6 weeks repeat TSH and Free T4 levels (2) Primary hypertension: Status: Acute Assessment & Plan: Patient has past medical history of primary hypertension which was initially controlled with telmisartan?hydrochlorothiazide, amlodipine and bisoprolol tartrate Patient's telmisartan hydrochlorothiazide was discontinued at the hospital as her blood pressure was well-controlled at that time Currently patient's blood pressure is elevated at 160s systolic and apparently has been in the 170s at home Patient denies having any concerning symptoms, denies any headaches, vision changes or chest pain Patient has an appointment with cardiology soon Plan: Started patient on telmisartan 80 mg p.o. daily Continue amlodipine Explained to the patient that bisoprolol tartrate is not first-line for hypertension and as a result told her to hold it until she is seen by cardiology, but explained to her that she may take the bisoprolol if her blood pressure is still high Will hold off on hydrochlorothiazide at this time to reduce risk of dropping her blood pressure too much (3) Diabetes mellitus type 2, controlled, without complications: Status: Acute Assessment & Plan: Per patient history, previously pre-diabetic, but after recent hospital admission, A1c of 7.8% (08/2024). Patient was started on Metformin 500 mg PO BID. Plan: Continue Metformin 500 mg PO BID (4) Hyperlipidemia: Status: Acute Qualifiers: Hyperlipidemia type: mixed hyperlipidemia Qualified Code(s): E78.2 - Mixed hyperlipidemia Assessment & Plan: Patient has a past medical history of hyperlipidemia and previously on Atorvastatin. Lipid Panel (09/01/2024): Triglycerides 134, Cholesterol 187, LDL 111, HDL 49 Plan: Continue Atorvastatin 20 mg PO HS Orders: Orders Thyroid Stimulating Hormone 10/19/24 Free T4 (Free Thyroxine) 10/19/24 Additional Assessment Attending note: I, Lizandro Gonzalez MD, attest that I was physically present for the hobbs portions of the service and evaluated the patient with the resident and I reviewed and discussed the case with the resident and agree with the resident's findings and plans of care as documented above. Lizandro Gonzalez MD Advanced Care Planning Advance care planning discussed with:: patient and child (Daughter) Physician Billing Established Patient Established Patient: E/M Level 3-CPT 53449 Office Procedures [facility] Level of Care Nursing/Assessment Patient Status: Established Patient Nursing Assessment/Reassessment: Medication Reconciliation, Update PMH in EMR and Vital Signs Coordination of Care: Complex Care and Chronic Disease 1-5, Education Complex Pt/Fam, Results/Orders obtained and Staff clarify orders Established Patient Charge Established Patient Point Assignment: 90 Established Patient Point Charge: EP Level 3 (80-115)
== END 2024-10-19 14:30 | disposition home or self-care (01) ==
LOC: HODAHC 13:34
PROVIDERS: PCP Physician Assistant; Referring Provider Physician Assistant; Supervising Provider Internal Medicine
DX: E03.9 Hypothyroidism, unspecified (principal); I10 Essential (primary) hypertension; E11.9 Type 2 diabetes mellitus without complications; Z79.84 Long term (current) use of oral hypoglycemic drugs; E78.2 Mixed hyperlipidemia
CPT/HCPCS: 99213; G0463

== ENCOUNTER 2025-01-17 08:56 | Outpatient (RCR) | payer MEDICARE, MEDICAID, SELFPAY ==
--- NOTE | 2025-01-17 11:16 | CTCCONSULT_ITS ---
Patient: MAXI HOOKER : 1945 MR#: [id number] Page 2 of 4 CONSULTATION NOTE DATE OF CONSULTATION: 01/17/2025 NAME: MAXI HOOKER ACCOUNT: [id number] : 1945 AGE: 79 REFERRING PHYSICIAN: Olivia Zacarias MD PRIMARY PHYSICIAN: REASON FOR VISIT: Establishing care for cancer ONCOLOGY HISTORY: DIAGNOSIS: na DATE OF DIAGNOSIS: na STAGE/TNM: na TREATMENT HISTORY: Care?Plan Start?Date Cycle Day Intent HISTORY OF PRESENT ILLNESS: 79-year-old female with new diagnsosi of mesothelioma . she was have sob for 3 weeks. She was found to have pleural effucion. She had collapse of lung and caused pneumothorax. Fluid was negative for cancer. Cardioligst at [place] and had xray again and she had some fluid. She was seen at [facility] and told that she had cancer of mesothelioma. She was seen at [facility] and thoracenteisis was done and pathology was done .result was not awailable. She never got the report. OTHER MEDICAL HISTORY/CONDITIONS: Mesothilioma right lung - dx 11/24/2024- dx in [place] Diabetes HTN Hyperlipidemia Hypothyroid Cholecystectomy - Right eye lens replacement Hemrhoidectomy FAMILY HISTORY: Children: Pat grandfather-lung - dx 70's Cancer History:?Pat grandmother - unknown-dx 70's SOCIAL HISTORY: Occupational?History:?Retired -[employer] Education?Level:?Completed High School Marital?Status:? 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 amlodipine - 5 mg 1 tab Daily 2. atorvastatin - 20 mg 1 tab Daily 3. bisoprolol fumarate - 2.5 mg 1 tab Every day before sleep 4. levothyroxine - 25 mcg 1 tab Daily 5. metFORMIN - 500 mg 1 tab Twice a Day 6. Mina 3 - 1 Capsule Daily 7. telmisartan - 80 mg 1 tab Daily Medications Last Reconciled by Herlinda Knowles RN on 01/17/2025 ALLERGIES: No Known Drug Allergies REVIEW OF SYSTEMS: A complete 14-point review of systems was performed and is negative except as noted in interval history. PHYSICAL EXAMINATION: VITAL SIGNS: B/P?177/84, Height?60?inches, Oxygen?Saturation?95% Weight?144?lbs PAIN: 0 - No pain ECOG Performance Status: 1 - Symptomatic; ambulatory; restricted in strenuous activity GENERAL APPEARANCE: Appears well, in no apparent distress, appropriately interactive. HEENT: Normocephalic, no temporal wasting, normal conjunctiva, no scleral icterus, normal hearing, lips without lesions, neck normal range of motion. CARDIOVASCULAR: Not assessed. PULMONARY: Normal respiratory effort, no respiratory distress or use of accessory muscles, speaking in full sentences, no tachypnea. EXTREMITIES: No pedal edema or cyanosis. SKIN: Normal skin appearance. NEUROLOGIC: Alert and oriented x4. PSHYCHIATRIC: Appropriate affect, mood normal, behavior normal, intact thought and speech. LABORATORY DATA: I have personally reviewed and interpreted each of the patient?s relevant lab tests, abnormal findings are below: Date ASSESSMENT/PLAN: Concern for lung cancer ? mesothelioma Started smoking at age of 22 yrs and continued smoking to the age of 57 yrs She was having buissness in [place] and was not [facility] Will confirm diagnosis Staging PET SCAN Mri BRAIN WITH CONTRAST TO EVALUATE FOR BRAIN METS Port catheter palcemnt Refer to ir for biopsy and port Refer to cardiothoracic surgeon ORDERS: Order # Description [id number] Initial PET/CT of Skull to Mid-Thigh [id number] MRI + Brain + With W/O Contrast [id number] Comprehensive Metabolic Panel - 12 + CBC with Auto Diff [id number] Ferritin + Vitamin B-12 + Folic Acid; Serum + Iron Panel RETURN TO CLINIC: I reviewed the diagnosis, prognosis, and recommended treatment/procedure options with the patient (and/or their legal solar sales representative), including the potential benefits, risks, side effects and alternative therapies. We also discussed the option of no treatment and the possibility of clinical trial participation, if applicable. All questions were addressed, and they demonstrated understanding. They provided informed consent to proceed with the proposed plan of care. BILLING AND COMPLIANCE: I reviewed external records from providers outside my specialty as summarized above. I spent a total of 50 minutes on this patient?s care on the day of their visit excluding time spent related to any billed procedures. This time includes time spent with the patient as well as time spent documenting in the medical record, reviewing patients records and tests, obtaining history, placing orders, communicating with other healthcare professionals, counseling the patient, family or caregiver, and/or care coordination for the diagnoses above. Electronically Signed by: Matty Brenner MD T: 11:13 AM CC: PCP: Referring: Olivia Zacarias This document was completed utilizing speech recognition software. Grammatical errors, random word insertions, pronoun errors, and incomplete sentences are an occasional consequence of this system due to software limitations, ambient noise, and hardware issues. Any formal questions or concerns about the content, text or information contained within the body of this dictation should be directly addressed to the provider for clarification.
== END 2025-02-14 23:59 | disposition home or self-care (01) ==
LOC: SCTC 08:56
PROVIDERS: PCP Physician Assistant; Referring Provider Physician Assistant; Visit Provider Internal Medicine Hematology & Oncology
DX: C45.9 Mesothelioma, unspecified (principal); Z87.891 Personal history of nicotine dependence
CPT/HCPCS: 99213; G0463

== ENCOUNTER → 2025-02-06 | Outpatient (CLI) | payer MEDICARE, MEDICAID, SELFPAY ==
--- NOTE | 2025-02-06 08:45 | XR_ITS ---
EXAMINATION: PET/CT FUSION SKULL TO THIGH EXAM DATE AND TIME: February 06, 2025, 0912 hours, comparison CT chest September 03, 2024 INDICATIONS: Diagnosis mesothelioma, staging prior to treatment CTDI:vol (mGy) 4.62 DLP: (mGycm) 387 PROCEDURE: 10.93 mCi FDG was administered intravenously To allow for distribution and uptake of radiotracer, the patient was allowed to rest quietly in a shielded room. Imaging was performed on an integrated 16-slice PET/CT scanner, with scanning from the skull base to the mid thigh. Serum blood glucose at the time of the injection was measured 102 mg/dL. CT scanning was performed without oral or intravenous contrast material. FINDINGS: Head and Neck: There is no katie hypermetabolism in the neck. The visualized portions of the brain are normal in appearance on CT. Chest: Large right pleural effusion No hypermetabolic mediastinal lymphadenopathy Atelectasis in the right lower lung zone No hypermetabolic pleura Abdomen and Pelvis: There is no katie hypermetabolism in retroperitoneal or pelvic chains. The spleen is normal in size and FDG avidity. Musculoskeletal: Marrow uptake is within normal range. IMPRESSION: Large right pleural effusion No hypermetabolic mediastinal lymphadenopathy No hypermetabolic pleura
== END | disposition home or self-care (01) ==
LOC: CDIM 08:24
PROVIDERS: PCP Family Medicine; Referring Provider Internal Medicine Hematology & Oncology; Visit Provider Internal Medicine Hematology & Oncology
DX: J90 Pleural effusion, not elsewhere classified (principal); C45.9 Mesothelioma, unspecified
CPT/HCPCS: 78815; A9552